=== PATIENT | male | born 1940 | race Caucasian/White ===

== ENCOUNTER 2017-07-14 09:56 | Day surgery (SDC) | payer MEDICARE, BC ==
[~2017-07-14 09:56] MED LIST: Lactated Ringers 1,000 ML IV SCH; Lidocaine 1%/Sod Bicarbonate in NS 8.4% 1 ML Syringe IDERM PRN; Sodium Chloride 0.9% 10 ML Syringe FLUSH PRN
[2017-07-14] MEDS ORDERED: Propofol 200 MG/20 ML SDV ONE (10:27)
[2017-07-14] MEDS ORDERED: fentaNYL 100 MCG/2 ML SDV ONE (10:27)
[2017-07-14] MEDS ORDERED: Lidocaine 1% 4 ML ONE (10:31)
--- NOTE | 2017-07-14 10:33 | PCM.PREANE ---
Preanesthetic Assessment - Procedure Proposed Procedure: Screening colonoscopy - Anesthesia/Transfusion/Family Hx Anesthesia History: Prior Anesthesia Without Reaction Family History of Anesthesia Reaction: No Transfusion History: No Prior Transfusion(s) Intubation History: Unknown Additional History: Pt is hypertensive due to him not taking his heart meds for 2 days now. Pt was concerned about "getting dizzy" if he continued to take his meds with the bowel prep. - Review of Systems General: No Symptoms Pulmonary: Cough (chronic) Cardiovascular: Other (cad, chf, hld, [place] with stents x2 in 2001, ASCVD) Gastrointestinal: No Symptoms Neurological: No Symptoms Other: Reports: None - Physical Assessment NPO Status Date: 07/13/17 NPO Status Time: 21:00 Pulse: 83 O2 Sat by Pulse Oximetry: 96 Respiratory Rate: 16 Blood Pressure: 146/110 Temperature: 36.8 C Height: 1.75 m Weight: 77 kg ASA Class: 3 Mental Status: Alert & Oriented x3 Airway Class: Mallampati = 2 Dentition: Reports: Normal Dentition Thyro-Mental Finger Breadths: 3 Mouth Opening Finger Breadths: 3 ROM/Head Extension: Full Lungs: Clear to Auscultation, Normal Respiratory Effort Cardiovascular: Regular Rate, Regular Rhythm - Allergies Allergies/Adverse Reactions: Allergies Allergy/AdvReac Type Severity Reaction Status Date / Time cephalexin Allergy Swelling Verified 07/13/17 13:03 - Blood Blood Available: No Product(s) Available: None - Anesthesia Plan Pre-Op Medication Ordered: None - Acknowledgements Anesthesia Type Planned: MAC Pt an Appropriate Candidate for the Planned Anesthesia: Yes Alternatives and Risks of Anesthesia Discussed w Pt/Guardian: Yes Pt/Guardian Understands and Agrees with Anesthesia Plan: Yes PreAnesthesia Questionnaire HEENT History: Reports: Hard of Hearing, Impaired Vision Other HEENT History: has glasses and hearing aids Cardiovascular History: Reports: CAD, Heart Failure, High Cholesterol, [place], Stents, Other (See Below) Other Cardiovascular History: ASCVD, hypotension Respiratory History: Reports: Other (See Below) Other Respiratory History: chronic cough Gastrointestinal History: Reports: Colon Polyp Genitourinary History: Reports: Other (See Below) Other Genitourinary History: orchitis, epidiymitis, hydrocele DIVIDEND CLERK History: Reports: None Musculoskeletal History: Reports: Other (See Below) Other Musculoskeletal History: plantar fasciitis, fibromatosis, left hip pain Neurological History: Reports: Other (See Below) Other Neuro History: dizziness Psychiatric History: Reports: None Endocrine/Metabolic History: Reports: None Hematologic History: Reports: None Immunologic History: Reports: None Oncologic (Cancer) History: Reports: None Dermatologic History: Reports: None - Past Surgical History Head Surgeries/Procedures: Reports: None HEENT Surgical History: Reports: None Respiratory Surgical History: Reports: None GI Surgical History: Reports: Colonoscopy, Hernia, Inguinal Female Surgical History: Reports: None Male Surgical History: Reports: None Endocrine Surgical History: Reports: None Neurological Surgical History: Reports: None Musculoskeletal Surgical History: Reports: None Oncologic Surgical History: Reports: None Dermatological Surgical History: Reports: None - SUBSTANCE USE Smoking Status *Q: Never Smoker Second Hand Smoke Exposure: No Days Per Week of Alcohol Use: 0 Recreational Drug Use History: No - HOME MEDS Home Medications: Home Meds Aspirin [Miguel Barrera Aspirin] 81 mg PO DAILY 07/13/17 [History] Carvedilol [Coreg] 6.25 mg PO DAILY 07/13/17 [History] Cholecalciferol (Vitamin D3) [Vitamin D3] 1,000 unit PO DAILY 07/13/17 [History] Enalapril Maleate [Vasotec] 5 mg PO DAILY 07/13/17 [History] Isosorbide Mononitrate [Imdur] 60 mg PO Q48H 07/13/17 [History] Multivitamin [Poly-Vitamin] 1 tab PO DAILY 07/13/17 [History] Nitroglycerin [Nitrostat] 0.4 mg PO Q5M PRN 07/13/17 [History] Ubidecarenone [Coq-10] 100 mg PO DAILY 07/13/17 [History] atorvaSTATin [Lipitor] 2.5 mg PO DAILY 07/13/17 [History] - CURRENT (IN HOUSE) MEDS Current Meds: Current Medications Lactated Ringer's (Ringers, Lactated) 1,000 mls @ 125 mls/hr IV ASDIRECTED KELLY Stop: 07/14/17 23:00 Lidocaine/Sodium Bicarbonate (Buffered Lidocaine 1% In Ns 8.4%) 0.25 ml IDERM ONETIME PRN PRN Reason: Prior to IV Start Stop: 07/14/17 18:00 Sodium Chloride (Saline Flush) 10 ml FLUSH ASDIRECTED PRN PRN Reason: Keep Vein Open Stop: 07/14/17 18:00
[2017-07-14] MEDS ORDERED: Simethicone Drops 40 MG/0.6 ML 30 ML Bottle ONE (11:40)
--- NOTE | 2017-07-14 11:52 | PCM.OPNOTE ---
- General Post-Op/Procedure Note Date of Surgery/Procedure: 07/14/17 Operative Procedure(s): colonoscopy to cecum Pre Op Diagnosis: screening colonoscopy Post-Op Diagnosis: Same Anesthesia Technique: MAC Primary Surgeon: Ramiro Sanabria EBL in mLs: 0 Complications: None Condition: Good
--- NOTE | 2017-07-14 11:56 | PCM48HPAN ---
Post Anesthesia Note - EVALUATION WITHIN 48HRS OF ANESTHETIC Vital Signs in Normal Range: Yes Patient Participated in Evaluation: Yes Respiratory Function Stable: Yes Airway Patent: Yes Cardiovascular Function Stable: Yes Hydration Status Stable: Yes Pain Control Satisfactory: Yes Nausea and Vomiting Control Satisfactory: Yes Mental Status Recovered: Yes Pulse Rate: 70 SaO2: 92 Resp Rate: 16 Temperature: 37.0 C Blood Pressure: 102/75
--- NOTE | 2017-07-14 13:20 | OR ---
DATE OF OPERATION: 07/14/2017 SURGEON: Ramiro Sanabria MD PREOPERATIVE DIAGNOSIS: Screening colonoscopy. POSTOPERATIVE DIAGNOSIS: Screening colonoscopy. OPERATION PERFORMED: Colonoscopy to cecum. FINDINGS: Moderately severe sigmoid diverticulosis. There are no angiodysplasia, neoplasia, large tumor masses, ulcerations, or notable hemorrhoids. ANESTHESIA: IV sedation. DESCRIPTION OF PROCEDURE: The patient was taken to the endoscopy room, placed in a supine position, connected to monitoring equipment, given IV sedation. He was then placed in the left lateral position. Perianal area was inspected, was normal rectal exam, showed good sphincter tone. A video Olympus colonoscope was then introduced into the rectum and threaded up without problem to the cecum, where the appendicular orifice and ileocecal valve was noted. Prep was excellent, [place] Cleansing score, grade A throughout the colon, and the scope was slowly withdrawn, showing the cecum, ascending colon, transverse colon, descending colon, sigmoid colon, and rectum. The patient tolerated the procedure, sent to recovery room in a stable condition. He will be followed up as needed in the clinic. ESTIMATED BLOOD LOSS: MMODAL /[id number]
== END 2017-07-14 12:40 | disposition home or self-care (01) ==
LOC: JD.SDS 09:56
PROVIDERS: ATTEND Surgery
DX: Z12.11 Encounter for screening for malignant neoplasm of colon (principal); K57.30 Diverticulosis of large intestine without perforation or abscess without bleeding; Z80.0 Family history of malignant neoplasm of digestive organs; I50.9 Heart failure, unspecified; E78.5 Hyperlipidemia, unspecified; I25.2 Old myocardial infarction; Z79.82 Long term (current) use of aspirin; Z79.899 Other long term (current) drug therapy; Z88.1 Allergy status to other antibiotic agents
CPT/HCPCS: A9270-GY; J2001; J2704; J3010; J7120

== ENCOUNTER 2018-04-30 13:24 | Emergency (ER) | payer MEDICARE, BC ==
--- NOTE | 2018-04-30 14:19 | EDM.PDOC ---
ED HPI GENERAL MEDICAL PROBLEM - General Chief Complaint: Neurological Problem Stated Complaint: DIZZINESS AND CHEST PAINS Time Seen by Provider: 04/30/18 13:39 Source of Information: Reports: Patient, Family (The patient's and daughter were present, but did not contribute to his history), RN Notes Reviewed History Limitations: Reports: No Limitations - History of Present Illness INITIAL COMMENTS - FREE TEXT/NARRATIVE: The patient states that he has been experiencing vertigo for the past 16 years. He may feel it at any time, but it is more frequent in the morning. He has been evaluated by ENT in the past, and his PCP has offered to put him on a different medicine for vertigo, but the patient has been reluctant to try it. He also reports that he has been sleeping poorly due to orthopnea since December 2017. He states that he will often get up, then sleep for a few hours in a recliner before returning to bed. He was told 16 years ago that he had CHF, and was initially on a diuretic, but the diuretic worsened his gout, and he was advised at the time that he should not be on a diuretic again, therefore the patient is not willing to be on a diuretic. The patient also reports that he has chest pain many mornings. Sometimes it last little time, sometimes a long time. The patient believes that his last cardiac stress test was around 10 years ago. The patient now presents to the ED, stating that he noticed that his feet looked swollen last night. He is tired from not sleeping well, and decided to come to the ED to get checked out. He states that he had chest pain this morning , but that it was no different than it usually is. Here in the ED, the patient denies vertigo, dyspnea, and chest pain. No recent illness. The patient's PCP is Dr. Asher. The patient does not have a [employer]. - Related Data Allergies Allergy/AdvReac Type Severity Reaction Status Date / Time cephalexin Allergy Swelling Verified 04/30/18 13:37 Home Meds: Home Meds Aspirin [[place] Aspirin] 81 mg PO DAILY 07/13/17 [History] Carvedilol [Coreg] 3.12 mg PO BID 07/13/17 [History] Cholecalciferol (Vitamin D3) [Vitamin D3] 1,000 unit PO DAILY 07/13/17 [History] Enalapril Maleate [Vasotec] 5 mg PO DAILY 07/13/17 [History] Isosorbide Mononitrate [Imdur] 30 mg PO DAILY 07/13/17 [History] Multivitamin [Poly-Vitamin] 1 tab PO DAILY 07/13/17 [History] Nitroglycerin [Nitrostat] 0.4 mg PO Q5M PRN 07/13/17 [History] Ubidecarenone [Coq-10] 100 mg PO DAILY 07/13/17 [History] atorvaSTATin [Lipitor] 5 mg PO DAILY 07/13/17 [History] Fluticasone Propionate [Flonase] 1 spray INH BID 04/30/18 [History] Past Medical History HEENT History: Reports: Hard of Hearing, Impaired Vision, Other (See Below) ( Chronic, recurrent vertigo) Other HEENT History: has glasses and hearing aids Cardiovascular History: Reports: CAD, Heart Failure, High Cholesterol, [place] (02/22) Gastrointestinal History: Reports: Colon Polyp Musculoskeletal History: Reports: Gout - Past Surgical History Cardiovascular Surgical History: Reports: Coronary Artery Stent (x 2001) GI Surgical History: Reports: Colonoscopy Social & Family History - Tobacco Use Smoking Status *Q: Never Smoker - Caffeine Use Caffeine Use: Reports: Coffee - Alcohol Use Alcohol Use History: No - Recreational Drug Use Recreational Drug Use: No - Living Situation & Occupation Living situation: Reports: , with Spouse Occupation: Retired ED ROS GENERAL - Review of Systems Review Of Systems: ROS reveals no pertinent complaints other than HPI. ED EXAM, GENERAL - Physical Exam Exam: See Below Exam Limited By: No Limitations General Appearance: Alert, WD/WN, No Apparent Distress Eye Exam: Bilateral Eye: EOMI, Normal Inspection Ears: Normal External Exam, Hearing Loss Nose: Normal Inspection Throat/Mouth: Normal Inspection, Normal Lips, Normal Voice, No Airway Compromise Head: Atraumatic, Normocephalic Neck: Normal Inspection, Full Range of Motion Respiratory/Chest: No Respiratory Distress, Lungs Clear, Normal Breath Sounds, No Accessory Muscle Use Cardiovascular: Normal Peripheral Pulses, Regular Rate, Rhythm, No Gallop, No JVD, No Murmur, No Rub Peripheral Pulses: 4+: Radial (L), Radial (R) GI/Abdominal: Normal Bowel Sounds, Soft, Non-Tender, No Organomegaly, No Distention, No Abnormal Bruit, No Mass (Male) Exam: Deferred Rectal (Males) Exam: Deferred Back Exam: Normal Inspection, Full Range of Motion, NT Extremities: Normal Inspection, Normal Range of Motion, Normal Capillary Refill , Other (2+ bilateral pedal edema, but no pretibial edema) Neurological: Alert, Oriented, Normal Cognition, No Motor/Sensory Deficits Psychiatric: Normal Affect Skin Exam: Warm, Dry, Intact, Normal Color, No Rash EKG INTERPRETATION EKG Date: 04/30/18 Time: 13:39 Rhythm: NSR Rate (Beats/Min): 96 [place]: LAD-Left [place] Deviation (2 LAFB) P-Wave: Enlarged (LAE) QRS: RBBB ST-T: Elevated (Lead III only) QT: Prolonged (QTc 524 ms) Comparison: NA - No Prior EKG Course - Vital Signs Last Recorded V/S: Last Vital Signs Temp 36.3 C 04/30/18 13:37 Pulse 101 H 04/30/18 13:37 Resp 12 04/30/18 13:37 BP 142/100 H 04/30/18 13:37 Pulse Ox 97 04/30/18 13:37 - Orders/Labs/Meds Orders: Active Orders 24 hr Category Date Time Status EKG Documentation Completion [RC] STAT Care 04/30/18 14:10 Active EKG Documentation Completion [RC] STAT Care 04/30/18 14:22 Active Chest 2V [CR] Stat Exams 04/30/18 14:09 Taken Labs: Laboratory Tests 04/30/18 04/30/18 04/30/18 Range/Units 13:40 13:40 13:40 WBC 5.90 (4.23-9.07) K/mm3 RBC 4.64 (4.63-6.08) M/mm3 Hgb 13.8 (13.7-17.5) gm/L Hct 42.9 (40.1-51.0) % MCV 92.5 H (79.0-92.2) fl MCH 29.7 (25.7-32.2) pg MCHC 32.2 (32.2-35.5) g/dl RDW Std Deviation 50.1 H (35.1-43.9) fL Plt Count 185 (163-337) K/mm3 MPV 11.9 (9.4-12.3) fl Neutrophils % (Manual) 64 H (40-60) % Band Neutrophils % 0 (0-10) % Lymphocytes % (Manual) 31 (20-40) % Atypical Lymphs % 0 % Monocytes % (Manual) 3 (2-10) % Eosinophils % (Manual) 2 (0.8-7.0) % Basophils % (Manual) 0 L (0.2-1.2) Platelet Estimate Adequate Plt Morphology Comment Normal RBC Morph Comment Normal Sodium 139 (136-145) mEq/L Potassium 4.2 (3.5-5.1) mEq/L Chloride 105 (98-107) mEq/L Carbon Dioxide 24 (21-32) mEq/L Anion Gap 14.2 (5-15) BUN 22 H (7-18) mg/dL Creatinine 1.3 (0.7-1.3) mg/dL Est Cr Clr Drug Dosing 49.91 mL/min Estimated GFR (MDRD) 54 (>60) mL/min BUN/Creatinine Ratio 16.9 (14-18) Glucose 156 H (83-115) mg/dL Calcium 9.6 (8.5-10.1) mg/dL Magnesium 2.2 (1.8-2.4) mg/dl Total Bilirubin 0.7 (0.2-1.0) mg/dL AST 34 (15-37) U/L ALT 58 (16-63) U/L Alkaline Phosphatase 76 (46-116) U/L Troponin I 0.143 H* (0.00-0.056) ng/mL NT-Pro-B Natriuret Pep 19745 H (0-450) pg/mL Total Protein 8.2 (6.4-8.2) g/dl Albumin 3.8 (3.4-5.0) g/dl Globulin 4.4 gm/dL Albumin/Globulin Ratio 0.9 L (1-2) - Re-Assessments/Exams Free Text/Narrative Re-Assessment/Exam: 04/30/18 14:22 Notified by the circular clerk that the patient is about to go for his chest x-ray, but he is experiencing right-sided chest pain. I have ordered a second ECG. 04/30/18 14:37 The patient's repeat ECG demonstrates a normal sinus rhythm at 88 BPM. There is one PVC. There is left atrial enlargement. No AV block. The ST segment is elevated in lead 3, but in no contiguous leads. There are no other ischemic changes. There is LAD, likely secondary to a left anterior fascicular block. No LVH. There is a right bundle branch block. The QTC is prolonged at 526 ms. There do not appear to be any significant changes from his earlier ECG. The patient's troponin has returned elevated at 0.143. We do not have any prior labs to compare. 04/30/18 14:42 2-view chest radiograph reviewed. There is cardiomegaly, and likely mild pulmonary vascular congestion, consistent with mild CHF decompensation. No pleural effusions. No focal infiltrate. No pneumothorax. Formal read per the Radiologist pending. 04/30/18 15:10 Test results discussed with the patient, his , and daughter. Clearly, the patient's orthopnea is due to congestive heart failure, and will not likely get better unless he is started on diuretic. Since the patient is not currently on a uric acid lowering medication, I am recommending that he be started on both a uric acid lowering medication, as well as a diuretic. Since there are choices in both of these classes of medications, and since his symptoms have been going on for several months, I feel it would be better if he followed up with his PCP , Dr. Asher, to make those choices. The patient said he would be able to, as early as tomorrow. The other issue is with the patient's elevated troponin. As above, I do not have a prior troponin to compare, but I think it is most likely that the patient has chronically elevated troponin due to congestive heart failure. In order to further evaluate, we would need to transfer the patient to [place], which I offered, but the patient declined. Again, since the patient will be following up with Dr. Asher, he may want to order an outpatient stress test for the patient. Departure - Departure Time of Disposition: 15:15 Disposition: Home, Self-Care 01 Condition: Fair Clinical Impression: Congestive heart failure (CHF), Elevated troponin - Discharge Information *PRESCRIPTION DRUG MONITORING PROGRAM REVIEWED*: Not Applicable *COPY OF PRESCRIPTION DRUG MONITORING REPORT IN PATIENT JACK: Not Applicable Referrals: Carroll Asher MD [Primary Care Provider] - Forms: ED Department Discharge Additional Instructions: You were seen in the emergency room for a 16 year history of vertigo, recurrent chest pain, an approximately four-month history of shortness of breath, particularly at night, when you are lying flat, and swollen feet noticed last night. Workup in the ER included blood work, a chest x-ray, and 2 ECGs. Your workup found to problems: 1. Your shortness of breath, particularly at night, is due to congestive heart failure. In order to properly treat this, you will need to be on a diuretic ( water pill), however, a diuretic may increase the chance of your having an attack of gout. We are recommending that you follow-up with your PCP, Dr. Asher, to discuss the option of starting on both a uric acid lowering medication, as well as a diuretic. 2. Your troponin (heart enzyme) was found to be mildly elevated. This is most likely due to your congestive heart failure although it is possible that it is due to other problems, such as inadequate blood flow to your heart. Further evaluation would be required in [place], which was offered, but declined. We recommend that you follow-up with Dr. Asher, to discuss getting an outpatient stress test. If any other problems, please do not hesitate to return to the ER. - My Orders Last 24 Hours: My Active Orders 04/30/18 14:09 Chest 2V [CR] Stat 04/30/18 14:10 EKG Documentation Completion [RC] STAT 04/30/18 14:22 EKG Documentation Completion [RC] STAT - Assessment/Plan Last 24 Hours: My Active Orders 04/30/18 14:09 Chest 2V [CR] Stat 04/30/18 14:10 EKG Documentation Completion [RC] STAT 04/30/18 14:22 EKG Documentation Completion [RC] STAT
--- NOTE | 2018-05-01 07:58 | CR ---
Chest: Two views of the chest were obtained. Comparison: No prior chest x-ray. Heart is enlarged. Pulmonary vessels are slightly congested. Very minimal Jose Angel B lines are noted within both lung bases possibly due to minimal interstitial edema. Bony structures appear within normal limits for the patient's age. Impression: 1. Findings suspicious for mild CHF and early interstitial edema. Diagnostic code #3
== END 2018-04-30 15:58 | disposition home or self-care (01) ==
LOC: JD.ED 13:24
DX: I50.9 Heart failure, unspecified (principal); R79.89 Other specified abnormal findings of blood chemistry; E78.00 Pure hypercholesterolemia, unspecified; I25.2 Old myocardial infarction; I25.10 Atherosclerotic heart disease of native coronary artery without angina pectoris; Z88.1 Allergy status to other antibiotic agents; Z79.899 Other long term (current) drug therapy; Z95.5 Presence of coronary angioplasty implant and graft; Z79.82 Long term (current) use of aspirin; Z88.8 Allergy status to other drugs, medicaments and biological substances
CPT/HCPCS: 36415; 71046; 71046-26; 80053; 83735; 83880; 84484; 85007; 85027; 93005; 93010; 99284; 99284-25

== ENCOUNTER 2018-05-01 21:20 | Inpatient (IN) | payer MEDICARE, BC ==
--- NOTE | 2018-05-01 22:19 | EDM.PDOC ---
ED HPI GENERAL MEDICAL PROBLEM - General Chief Complaint: Cardiovascular Problem Stated Complaint: SHORT OF BREATH Time Seen by Provider: 05/01/18 22:18 Source of Information: Reports: Patient History Limitations: Reports: No Limitations - History of Present Illness INITIAL COMMENTS - FREE TEXT/NARRATIVE: 77-year-old male presents to the ED for evaluation of dyspnea. He has a history of orthopnea getting worse over the last 3-4 days. He can usually lie down at bedtime but is up by 3:00 and has to go sit in the easy chair because of dyspnea. Short of breath on minimal exertion such as walking from the bedroom to the bathroom. He has one flight of stairs in his home and he can barely make it up the stairs because of dyspnea. Reports a myocardial infarction in 2001 and required 2 stents at that time. He states he's had no chest pain in the last week or 10 days It's unclear what his echo shows for ejection fraction. He was seen in the clinic earlier today by Dr. Asher and placed on Lasix 20 mg once daily which he took its 1800 hrs. tonight and noticed no improvement in diuresis. He denies cough sputum production fever or chills. Appetite is been quite poor the last 3 months. He thinks he's gained about 4-5 pounds of weight in the last week to 10 days and is appreciating edema of lower extremities involving his feet and ankles. Onset: Gradual Onset Date: 04/27/18 Duration: Day(s):, Getting Worse Location: Reports: Chest (Result breath with orthopnea and PND.) Quality: Reports: Other Severity: Severe (Shortness of breath even at rest but aggravated by minimal exertion) Improves with: Reports: Rest Worsens with: Reports: Other, Movement Context: Reports: Other (Spontaneous occurrence of increased dyspnea with orthopnea and PND). Denies: Activity (Walking for the bathroom to the bed will make him short of breath and he can barely make it up 6 stairs without having to stop because of dyspnea a big change from 10 days ago), Exercise, Lifting, Sick Contact, Trauma Associated Symptoms: Reports: Loss of Appetite, Malaise, Shortness of Breath, Other (4-5 pound weight gain in the last week). 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 but didn't notice any significant urination) - Related Data Allergies Allergy/AdvReac Type Severity Reaction Status Date / Time cephalexin Allergy Swelling Verified 04/30/18 13:37 Home Meds: Home Meds Aspirin [Angelina Aspirin] 81 mg PO DAILY 07/13/17 [History] Carvedilol [Coreg] 3.12 mg PO BID 07/13/17 [History] Enalapril Maleate [Vasotec] 5 mg PO BEDTIME 07/13/17 [History] Isosorbide Mononitrate [Imdur] 30 mg PO DAILY 07/13/17 [History] Nitroglycerin [Nitrostat] 0.4 mg PO Q5M PRN 07/13/17 [History] atorvaSTATin [Lipitor] 5 mg PO DAILY 07/13/17 [History] Furosemide 20 mg PO DAILY 05/01/18 [History] Past Medical History HEENT History: Reports: Hard of Hearing, Impaired Vision, Other (See Below) Other HEENT History: has glasses and hearing aids Cardiovascular History: Reports: CAD, Heart Failure, High Cholesterol, SD, Stents (In 2001 2 stents placed after SD in 2001) Other Cardiovascular History: ASCVD, hypotension Respiratory History: Reports: Other (See Below) Other Respiratory History: chronic cough Gastrointestinal History: Reports: Colon Polyp Genitourinary History: Reports: Other (See Below) Other Genitourinary History: orchitis, epidiymitis, hydrocele 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 Musculoskeletal History: Reports: Gout Other Musculoskeletal History: plantar fasciitis, fibromatosis, left hip pain Neurological History: Reports: Other (See Below) Other Neuro History: dizziness Psychiatric History: Reports: None Endocrine/Metabolic History: Reports: None Hematologic History: Reports: None Immunologic History: Reports: None Oncologic (Cancer) History: Reports: None Dermatologic History: Reports: None - Past Surgical History Head Surgeries/Procedures: Reports: None Cardiovascular Surgical History: Reports: Coronary Artery Stent Respiratory Surgical History: Reports: None GI Surgical History: Reports: Colonoscopy Male Surgical History: Reports: None Endocrine Surgical History: Reports: None Neurological Surgical History: Reports: None Oncologic Surgical History: Reports: None Dermatological Surgical History: Reports: None Social & Family History - Family History Family Medical History: Noncontributory - Tobacco Use Smoking Status *Q: Never Smoker Second Hand Smoke Exposure: No - Caffeine Use Caffeine Use: Reports: Coffee - Recreational Drug Use Recreational Drug Use: No - Living Situation & Occupation Living situation: Reports: , with Spouse Occupation: Retired ED ROS GENERAL - Review of Systems Review Of Systems: See Below Constitutional: Reports: Malaise, Weakness, Fatigue, Weight Gain (4-5 pounds over the last week), Other (Dyspnea). Denies: Fever, Chills, Diaphoresis HEENT: Reports: Glasses, Hearing Loss Respiratory: Reports: Shortness of Breath (Mild hearing impairment), Other. Denies: Wheezing, Pleuritic Chest Pain, Cough, Sputum, Hemoptysis Cardiovascular: Reports: Blood Pressure Problem, Dyspnea on Exertion ( appreciates increased swelling of his feet and ankles the last week), Edema ( believe is more vertiginous than anything), Lightheadedness (Occasional lightheadedness which I). Denies: Chest Pain (Orthopnea and PND the last week to 10 days), Claudication, Orthopnea, Palpitations ( much worse than normal over the last week. ) Endocrine: Reports: Fatigue GI/Abdominal: Reports: Decreased Appetite : Reports: Other (Arterial usually 2). Denies: Frequency, Incontinence Musculoskeletal: Reports: Back Pain, Joint Pain (Knees hips neck at times) Skin: Reports: No Symptoms Neurological: Reports: No Symptoms Psychiatric: Reports: No Symptoms Hematologic/Lymphatic: Reports: No Symptoms Immunologic: Reports: No Symptoms ED EXAM, GENERAL - Physical Exam Exam: See Below Exam Limited By: No Limitations General Appearance: Alert, WD/WN, No Apparent Distress, Other (A pleasant gentleman. Vital signs show temperature 36.7. Pulse of 84 monitor shows sinus rhythm. Respiratory distress 20 at rest with sats of 96%. BP is 133/92) Eye Exam: Bilateral Eye: Normal Inspection Throat/Mouth: Normal Inspection, Normal Lips, Normal Teeth, Normal Oropharynx Head: Atraumatic, Normocephalic Neck: Normal Inspection, Supple, Non-Tender, Full Range of Motion, Tender Lateral. No: Carotid Bruit (Some tenderness lateral aspect the neck bilaterally due to are stretched Mireya changes.), Lymphadenopathy (L), Lymphadenopathy (R) Respiratory/Chest: No Accessory Muscle Use, Respiratory Distress, Rales (INR is both bases a little worse on the left as compared to the right.). No: Lungs Clear, Normal Breath Sounds, Rhonchi, Wheezing, Stridor, Pleural Rub (Mild tachypnea at rest.) Cardiovascular: Regular Rate, Rhythm, No Gallop, No Murmur, No Rub, JVD (To 3 cm below the angle of his mandible at 45). No: Normal Peripheral Pulses, No Edema Peripheral Pulses: 1+: Posterior Tibial (L), Posterior Tibial (R), Dorsalis Pedis (L), Dorsalis Pedis (R) GI/Abdominal: Normal Bowel Sounds, Soft, Non-Tender, No Organomegaly Back Exam: Normal Inspection, Full Range of Motion. No: CVA Tenderness (L), CVA Tenderness (R) Extremities: Pedal Edema (1-2+ pitting edema lower extremities 2 in the lower third of the tib-fib bilaterally.), Other (Evidence of osteophytic changes both knees both hips) Neurological: Alert, Oriented, CN II-XII Intact, Normal Cognition Psychiatric: Normal Affect, Normal Mood Skin Exam: Warm, Dry, Intact, Normal Color, No Rash EKG INTERPRETATION EKG Date: 05/02/18 Time: 23:50 Rhythm: NSR Rate (Beats/Min): 70 [place]: LAD-Left [place] Deviation (-40) P-Wave: Enlarged (Enlarged in lead 2. Give some consideration to possible left atrial hypertrophy.) QRS: Other (There are Q waves in V1 and V2 and V3 and I can't use V4 to V6 for interpretation as both of these beats are secondary to PVCs. There is a Q-wave in lead II, III, and F aVF suggesting old inferior wall myocardial infarction as well.) ST-T: Elevated (Early elevated ST segment in lead 3.) QT: Prolonged (Water prolonged) EKG Interpretation Comments: Abnormal ECG. Course - Vital Signs Last Recorded V/S: Last Vital Signs Temp 36.7 C 05/01/18 21:36 Pulse 84 05/01/18 21:36 Resp 20 05/01/18 21:36 BP 133/92 H 05/01/18 21:36 Pulse Ox 98 05/01/18 21:36 - Orders/Labs/Meds Orders: Active Orders 24 hr Category Date Time Status EKG Documentation Completion [RC] STAT Care 05/01/18 22:28 Active Peripheral IV Care [RC] . DIRECTED Care 05/01/18 22:29 Active Chest 1V Frontal [CR] Stat Exams 05/01/18 22:28 Taken Sodium Chloride 0.9% [Saline Flush] Med 05/01/18 22:28 Active 10 ml FLUSH ASDIRECTED PRN Peripheral IV Insertion Adult [OM.PC] Stat Oth 05/01/18 22:29 Ordered Medication Orders Enoxaparin Sodium (Lovenox) 30 mg SUBCUT Q24H [facility] Last Admin: 05/02/18 01:23 Dose: 30 mg Sodium Chloride (Saline Flush) 10 ml FLUSH ASDIRECTED PRN PRN Reason: Keep Vein Open Last Admin: 05/01/18 23:01 Dose: 10 ml Labs: Laboratory Tests 05/01/18 05/01/18 05/01/18 Range/Units 22:54 22:54 22:54 WBC 6.09 (4.23-9.07) K/mm3 RBC 4.14 L (4.63-6.08) M/mm3 Hgb 12.3 L (13.7-17.5) gm/L Hct 38.3 L (40.1-51.0) % MCV 92.5 H (79.0-92.2) fl MCH 29.7 (25.7-32.2) pg MCHC 32.1 L (32.2-35.5) g/dl RDW Std Deviation 49.2 H (35.1-43.9) fL Plt Count 171 (163-337) K/mm3 MPV 11.2 (9.4-12.3) fl Neutrophils % (Manual) 65 H (40-60) % Band Neutrophils % 0 (0-10) % Lymphocytes % (Manual) 23 (20-40) % Atypical Lymphs % 0 % Monocytes % (Manual) 7 (2-10) % Eosinophils % (Manual) 5 (0.8-7.0) % Basophils % (Manual) 0 L (0.2-1.2) Platelet Estimate Adequate RBC Morph Comment Normal ESR (0-15) mm/hr PT 12.4 H (9.5-12.1) SECONDS INR 1.14 Sodium 138 (136-145) mEq/L Potassium 4.4 (3.5-5.1) mEq/L Chloride 105 (98-107) mEq/L Carbon Dioxide 23 (21-32) mEq/L Anion Gap 14.4 (5-15) BUN 26 H (7-18) mg/dL Creatinine 1.2 (0.7-1.3) mg/dL Est Cr Clr Drug Dosing 54.07 mL/min Estimated GFR (MDRD) 59 (>60) mL/min BUN/Creatinine Ratio 21.7 H (14-18) Glucose 113 (83-115) mg/dL Calcium 9.2 (8.5-10.1) mg/dL Magnesium 2.1 (1.8-2.4) mg/dl Total Bilirubin 0.6 (0.2-1.0) mg/dL AST 30 (15-37) U/L ALT 53 (16-63) U/L Alkaline Phosphatase 62 (46-116) U/L CK-MB (CK-2) (0-3.6) ng/ml Troponin I 0.121 H* (0.00-0.056) ng/mL C-Reactive Protein 0.5 (<1.0) mg/dL NT-Pro-B Natriuret Pep (0-450) pg/mL Total Protein 7.4 (6.4-8.2) g/dl Albumin 3.5 (3.4-5.0) g/dl Globulin 3.9 gm/dL Albumin/Globulin Ratio 0.9 L (1-2) 05/01/18 05/01/18 05/01/18 Range/Units 22:54 22:54 22:54 WBC (4.23-9.07) K/mm3 RBC (4.63-6.08) M/mm3 Hgb (13.7-17.5) gm/L Hct (40.1-51.0) % MCV (79.0-92.2) fl MCH (25.7-32.2) pg MCHC (32.2-35.5) g/dl RDW Std Deviation (35.1-43.9) fL Plt Count (163-337) K/mm3 MPV (9.4-12.3) fl Neutrophils % (Manual) (40-60) % Band Neutrophils % (0-10) % Lymphocytes % (Manual) (20-40) % Atypical Lymphs % % Monocytes % (Manual) (2-10) % Eosinophils % (Manual) (0.8-7.0) % Basophils % (Manual) (0.2-1.2) Platelet Estimate RBC Morph Comment ESR 11 (0-15) mm/hr PT (9.5-12.1) SECONDS INR Sodium (136-145) mEq/L Potassium (3.5-5.1) mEq/L Chloride (98-107) mEq/L Carbon Dioxide (21-32) mEq/L Anion Gap (5-15) BUN (7-18) mg/dL Creatinine (0.7-1.3) mg/dL Est Cr Clr Drug Dosing mL/min Estimated GFR (MDRD) (>60) mL/min BUN/Creatinine Ratio (14-18) Glucose (83-115) mg/dL Calcium (8.5-10.1) mg/dL Magnesium (1.8-2.4) mg/dl Total Bilirubin (0.2-1.0) mg/dL AST (15-37) U/L ALT (16-63) U/L Alkaline Phosphatase (46-116) U/L CK-MB (CK-2) 2.1 (0-3.6) ng/ml Troponin I (0.00-0.056) ng/mL C-Reactive Protein (<1.0) mg/dL NT-Pro-B Natriuret Pep 47316 H (0-450) pg/mL Total Protein (6.4-8.2) g/dl Albumin (3.4-5.0) g/dl Globulin gm/dL Albumin/Globulin Ratio (1-2) Meds: Medications Generic Name Dose Route Start Last Admin Trade Name Freq PRN Reason Stop Dose Admin Enoxaparin Sodium 30 mg 05/02/18 00:45 05/02/18 01:23 Lovenox SUBCUT 30 mg Q24H KELLY Administration Sodium Chloride 10 ml 05/01/18 22:28 05/01/18 23:01 Saline Flush FLUSH 10 ml ASDIRECTED PRN Administration Keep Vein Open Discontinued Medications Generic Name Dose Route Start Last Admin Trade Name Freq PRN Reason Stop Dose Admin Furosemide 40 mg 05/01/18 22:27 05/01/18 23:00 Lasix IVPUSH 05/01/18 22:28 40 mg NOW ONE Administration - Radiology Interpretation Free Text/Narrative:: 77-year-old male attends the ED due to gradually worsening dyspnea over the last week perhaps 10 days. The last 4 nights he's had to get up after sleeping for only 2 hours and sit in the easy chair i.e. paroxysmal nocturnal dyspnea. His then able to return to the bed about 0700 hrs. and perhaps sleep another couple hours. Patient has a history of congestive heart failure. Patient had a myocardial infarction in 2001 and required 2 stent placement. He is no longer on Plavix. It's unclear what his last echo showed for ejection fraction. He was seen in clinic today and started on Lasix 20 mg daily. He took his first one in 1800 hrs. but didn't really notice that he had any increase in voiding. He denies any chest pain in the last 10 days. Extremely short of breath on minimal exertion such as rockstar the bathroom to the bedroom or up a flight of 6 stairs he'll have to stop when he gets up stairs which he didn't have to do 10 days ago. Examination he has slight elevation of his JVD. He also has fine crackles at both lung bases worse on the left as compared to the right. Plan 1 view chest x-ray ECG routine labs to include BMP and cardiac markers. Reason for his cardiac decompensation is unclear. We'll give him Lasix 40 mg IV via saline lock. - Re-Assessments/Exams Free Text/Narrative Re-Assessment/Exam: 05/01/18 23:20 chest x-ray done portably reveals moderate cardiomegaly with very tortuous thoracic aorta and prominent aortic arch. There is slight diffuse vascular congestion particularly in the right lower quadrant possibly a small component of pulmonary fibrosis in this area as well. 05/02/18 00:08 White count is 6.09 with 65% neutrophils and no band cells reported. Hemoglobin is 12.3 with hematocrit of 38.3. MCV is 92.5. Reticulocyte count is 171,000. Sedimentation rate is 11. PT is 12.4 with an INR 1.14. Sodium 138 with a potassium of 4.4 chloride 105 with a bicarbonate 23. And a gap is 14.4 BUN is 26. Creatinine is 1.2.. GFR is 59. Glucose is 113. Calcium is 9.2. Magnesium is good at 2.1. Liver function is normal. Troponin I is elevated at 0.121. C-reactive protein is 0.5. BNP is 10,690. Total protein is 7.4 within albumin fraction of 3.5. Rest the findings with the patient and his daughter. Decision made for him to stay in the hospital for a day or 2 for IV Lasix to become effectual and removing a good portion of his retained fluid. It's unlikely that oral Lasix will do the trick by itself at this time. He is willing to stay in the house. His O2 sats remained 96% on room air. He already feels more comfortable or like he can get a better breath since having the Lasix IV. He has voided about 1000 mils of urine after the initial dose of Lasix 40. I spoke with Dr. Piña credit card control clerk hospitalist and bridge orders will be written. Patient will have a repeat Lasix dose 40 mg at 0600 hrs. will also have repeat lab work at that time with a serum troponin value. I suspect current troponin value is elevated due to elevated BNP almost impossible tell that he has not had a recent myocardial infarction causes cardiac decompensation. He will need an echocardiogram while in hospital. He will be given a dose of Lovenox 30 mg subcutaneous at this time. Departure - Departure Time of Disposition: 00:10 Disposition: Admitted As Inpatient 67 Reason for Transfer *Q: Other Condition: Fair Clinical Impression: Congestive heart failure Qualifiers: Heart failure type: diastolic Heart failure chronicity: acute on chronic Qualified Code(s): I50.33 - Acute on chronic diastolic (congestive) heart failure - My Orders Last 24 Hours: My Active Orders 05/01/18 22:28 EKG Documentation Completion [RC] STAT Chest 1V Frontal [CR] Stat Sodium Chloride 0.9% [Saline Flush] 10 ml FLUSH ASDIRECTED PRN 05/01/18 22:29 Peripheral IV Care [RC] . DIRECTED Peripheral IV Insertion Adult [OM.PC] Stat - Assessment/Plan Last 24 Hours: My Active Orders 05/01/18 22:28 EKG Documentation Completion [RC] STAT Chest 1V Frontal [CR] Stat Sodium Chloride 0.9% [Saline Flush] 10 ml FLUSH ASDIRECTED PRN 05/01/18 22:29 Peripheral IV Care [RC] . DIRECTED Peripheral IV Insertion Adult [OM.PC] Stat
[2018-05-01] MEDS ORDERED: Furosemide 40 MG/4 ML VIAL IVPUSH ONE (22:27)
[2018-05-01] MEDS ORDERED: Sodium Chloride 0.9% 10 ML Syringe FLUSH PRN (22:28)
[2018-05-02] MEDS: Enoxaparin 30 MG/0.3 ML Syringe SUBCUT SCH (01:23)
[2018-05-02] MEDS ORDERED: Acetaminophen 325 MG Tab PO PRN (02:21)
[2018-05-02] MEDS ORDERED: Furosemide 40 MG/4 ML VIAL IVPUSH SCH ×3 (06:00→18:00)
--- NOTE | 2018-05-02 07:17 | CR ---
Chest: Portable view of the chest was obtained. Comparison: Prior chest x-ray of 04/30/18. Heart is enlarged. Tortuous thoracic aorta is seen. Pulmonary vessels remain slightly increased. Bony structures are unremarkable. Impression: 1. Mild changes of CHF. Diagnostic code #3
[2018-05-02] MEDS ORDERED: Nitroglycerin 0.4 MG Tab.SL SL PRN (07:28)
[2018-05-02] MEDS ORDERED: Docusate Sodium 100 MG Cap PO PRN (07:32)
[2018-05-02] MEDS ORDERED: Ondansetron 4 MG/2 ML SDV IV PRN (07:32)
[2018-05-02] MEDS ORDERED: Bisacodyl 5 MG Tab PO PRN (07:32)
[2018-05-02] MEDS ORDERED: Polyethylene Glycol 3350 Powder 17 GM Packet PO PRN (07:32)
[2018-05-02] MEDS ORDERED: Metoprolol Tartrate 5 MG/5 ML SDV IVPUSH PRN (07:36)
[2018-05-02] MEDS ORDERED: hydrALAZINE 20 MG/ML SDV IVPUSH PRN (07:36)
--- NOTE | 2018-05-02 07:38 | PCM.HP ---
H&P History of Present Illness - General Date of Service: 05/02/18 Admit Problem/Dx: Admission Diagnosis/Problem Admission Diagnosis/Problem CHF, Congestive heart failure Source of Information: Patient, Family, Old Records, Provider, RN, RN Notes Reviewed History Limitations: Reports: No Limitations - History of Present Illness Initial Comments - Free Text/Narative: Anish Velez is a 77 yo male patient who presents to our ED on 05/01/18 with worsening dyspnea. He reports his been having worsening orthopnea over the past 3-4 days and because of this has been sleeping in the chair. He's noticed increased shortness of breath when walking to the bathroom or upstairs. His history of a myocardial infarction in 2001 that required 2 stents. Reports no recent chest pain. He was seen earlier at the clinic and placed on 20 mg oral Lasix by Dr. Asher which he took took at 1800 prior and the day and noticed no increased urine output or improve diuresis. Denies cough, sputum, fever, chills. Appetite has been poor for the last 3 months or so. Reports he thinks he gained about 4-5 pounds of weight in the last week to 10 days and noticed worsening edema in his feet and ankles. In the ED Was 36.7 Celsius. Pulse 84. Respirations 20. Blood pressure 133/ 92. Pulse ox 90%. 12-lead EKG is obtained and interpreted by the ED provider as showing left axis deviation with an enlarged P wave in lead 2. Consider possible left atrial hypertrophy. Q waves are present in V1, V2, and V3. V5 and V6 are skewed by prior PVCs. There is Q waves noted in inferior leads suggesting old inferior wall myocardial infarction. ST segment is elevated in lead 3 and QT is prolonged. Labs are obtained: WBC is 6.09. Hemoglobin 12.3. Hematocrit 30.3. He is macrocytic. Platelets are good at 171,000. Neutrophils are elevated at 65%. There is no bandemia. PT is 12.4. INR is 1.14. Sodium is 138. Potassium 4.4. Chloride 105. Carbon oxide 23. Anion gap 14.4. BUN is 26. Creatinine 1.2. EGFR is 59. Glucose 113. Calcium 9.2. Magnesium 2.1. Bilirubin is 0.6. AST 30, ALT 53, alkaline phosphatase 62. Troponin is elevated at 0.121. CRP is 0.5. Protein 7.4. Albumin 3.5. ESR is 11. CK-MB is 2.1. ProBNP is 10,690. ED provider notes JVD and fine crackles in both lung bases worse on the left. A 40 mg IV push Lasix. Chest x-rays obtained and interpreted by Dr. Contreras is having enlarged heart and slightly increased pulmonary vessels. This represents mild changes of CHF. Patient reported improved breathing after having the IV Lasix. He also was noted to have about a liter of urine output. Suspect elevated troponins due to elevated BNP. He carries a history of: Hard of hearing, CAD, heart failure, HLD, MS with 2 stents placed in 2001, ASCVD, hypotension, chronic cough, cold polyps, gout, chronic dizziness. He was never a smoker. He says really admitted to the medical floor on telemetry. He is a full code. His PCP is Dr. Asher. - Related Data Allergies/Adverse Reactions: Allergies Allergy/AdvReac Type Severity Reaction Status Date / Time cephalexin Allergy Swelling Verified 04/30/18 13:37 Home Medications: Home Meds Aspirin [Jones Aspirin] 81 mg PO DAILY 07/13/17 [History] Carvedilol [Coreg] 3.12 mg PO BID 07/13/17 [History] Enalapril Maleate [Vasotec] 5 mg PO BEDTIME 07/13/17 [History] Isosorbide Mononitrate [Imdur] 30 mg PO DAILY 07/13/17 [History] Nitroglycerin [Nitrostat] 0.4 mg PO Q5M PRN 07/13/17 [History] atorvaSTATin [Lipitor] 5 mg PO DAILY 07/13/17 [History] Furosemide 20 mg PO DAILY 05/01/18 [History] Past Medical History HEENT History: Reports: Hard of Hearing, Impaired Vision, Other (See Below) Other HEENT History: has glasses and hearing aids Cardiovascular History: Reports: CAD, Heart Failure, High Cholesterol, MS, Stents Other Cardiovascular History: ASCVD, hypotension Respiratory History: Reports: Other (See Below) Other Respiratory History: chronic cough Gastrointestinal History: Reports: Colon Polyp Genitourinary History: Reports: Other (See Below) Other Genitourinary History: orchitis, epidiymitis, hydrocele HOME HEALTH RN History: Reports: None Musculoskeletal History: Reports: Gout Other Musculoskeletal History: plantar fasciitis, fibromatosis, left hip pain Neurological History: Reports: Other (See Below) Other Neuro History: dizziness Psychiatric History: Reports: None Endocrine/Metabolic History: Reports: None Hematologic History: Reports: None Immunologic History: Reports: None Oncologic (Cancer) History: Reports: None Dermatologic History: Reports: None - Infectious Disease History Infectious Disease History: Reports: Chicken Pox - Past Surgical History Head Surgeries/Procedures: Reports: None Cardiovascular Surgical History: Reports: Coronary Artery Stent Respiratory Surgical History: Reports: None GI Surgical History: Reports: Colonoscopy Male Surgical History: Reports: None Endocrine Surgical History: Reports: None Neurological Surgical History: Reports: None Oncologic Surgical History: Reports: None Dermatological Surgical History: Reports: None Social & Family History - Family History Family Medical History: Noncontributory - Tobacco Use Smoking Status *Q: Never Smoker Second Hand Smoke Exposure: No - Caffeine Use Caffeine Use: Reports: Coffee - Recreational Drug Use Recreational Drug Use: No - Living Situation & Occupation Living situation: Reports: , with Spouse Occupation: Retired H&P Review of Systems - Review of Systems: Review Of Systems: See Below General: Reports: Decreased Appetite, Weight Gain (4-5lbs). Denies: Fever, Chills, Malaise, Weakness, Fatigue HEENT: Denies: Hearing Changes, Rhinitis, Sore Throat Pulmonary: Reports: Shortness of Breath, Cough. Denies: Wheezing, Pleuritic Chest Pain, Sputum Cardiovascular: Reports: Palpitations, Dyspnea on Exertion, Orthopnea, Edema. Denies: Chest Pain, Lightheadedness Gastrointestinal: Reports: No Symptoms. Denies: Abdominal Pain, Constipation, Diarrhea, Nausea, Vomiting Genitourinary: Reports: Frequency (2/2 lasix admin ). Denies: Pain Musculoskeletal: Reports: No Symptoms Skin: Reports: No Symptoms Psychiatric: Reports: No Symptoms. Denies: Confusion Neurological: Reports: No Symptoms. Denies: Headache, Numbness, Pre-Existing Deficit, Difficulty Walking, Change in Speech, Gait Disturbance Exam - Exam Exam: See Below - Vital Signs Vital Signs: Last Vital Signs Temp 97.3 F 05/02/18 01:44 Pulse 95 05/02/18 01:44 Resp 20 05/02/18 01:44 BP 137/97 H 05/02/18 01:44 Pulse Ox 96 05/02/18 01:44 Weight: 173 lb 8 oz - Exam Quality Assessment: DVT Prophylaxis General: Alert, Oriented, Cooperative. No: Mild Distress HEENT: Conjunctiva Clear, EACs Clear, EOMI, Hearing Intact, Mucosa Moist & Lead , Normal Nasal Septum, Posterior Pharynx Clear, PERRLA Neck: Supple, Trachea Midline, JVD Lungs: Clear to Auscultation, Normal Respiratory Effort. No: Crackles, Rhonchi , Wheezing Cardiovascular: Regular Rate, Irregular Rhythm (PVCs ) GI/Abdominal Exam: Normal Bowel Sounds, Soft, Non-Tender, No Organomegaly, No Distention (Male) Exam: Deferred Rectal (Males) Exam: Deferred Back Exam: Normal Inspection, Full Range of Motion Extremities: Normal Inspection, Normal Range of Motion, Non-Tender, No Pedal Edema, Normal Capillary Refill Peripheral Pulses: 2+: Radial (L), Radial (R), Dorsalis Pedis (L), Dorsalis Pedis (R) Skin: Warm, Dry, Intact Neurological: Cranial Nerves Intact (Grossly ) Neuro Extensive - Mental Status: Alert, Oriented x3, Normal Mood/Affect - Patient Data Lab Results Last 24 hrs: Laboratory Results - last 24 hr 05/01/18 05/01/18 05/01/18 Range/Units 22:54 22:54 22:54 WBC 6.09 (4.23-9.07) K/mm3 RBC 4.14 L (4.63-6.08) M/mm3 Hgb 12.3 L (13.7-17.5) gm/L Hct 38.3 L (40.1-51.0) % MCV 92.5 H (79.0-92.2) fl MCH 29.7 (25.7-32.2) pg MCHC 32.1 L (32.2-35.5) g/dl RDW Std Deviation 49.2 H (35.1-43.9) fL Plt Count 171 (163-337) K/mm3 MPV 11.2 (9.4-12.3) fl Neut % (Auto) (34.0-67.9) % Lymph % (Auto) (21.8-53.1) % Summers % (Auto) (5.3-12.2) % Eos % (Auto) (0.8-7.0) Baso % (Auto) (0.1-1.2) % Neut # (Auto) (1.78-5.38) K/mm3 Lymph # (Auto) (1.32-3.57) K/mm3 Summers # (Auto) (0.30-0.82) K/mm3 Eos # (Auto) (0.04-0.54) K/mm3 Baso # (Auto) (0.01-0.08) K/mm3 Neutrophils % (Manual) 65 H (40-60) % Band Neutrophils % 0 (0-10) % Lymphocytes % (Manual) 23 (20-40) % Atypical Lymphs % 0 % Monocytes % (Manual) 7 (2-10) % Eosinophils % (Manual) 5 (0.8-7.0) % Basophils % (Manual) 0 L (0.2-1.2) Platelet Estimate Adequate RBC Morph Comment Normal ESR (0-15) mm/hr PT 12.4 H (9.5-12.1) SECONDS INR 1.14 Sodium 138 (136-145) mEq/L Potassium 4.4 (3.5-5.1) mEq/L Chloride 105 (98-107) mEq/L Carbon Dioxide 23 (21-32) mEq/L Anion Gap 14.4 (5-15) BUN 26 H (7-18) mg/dL Creatinine 1.2 (0.7-1.3) mg/dL Est Cr Clr Drug Dosing 54.07 mL/min Estimated GFR (MDRD) 59 (>60) mL/min BUN/Creatinine Ratio 21.7 H (14-18) Glucose 113 (83-115) mg/dL Calcium 9.2 (8.5-10.1) mg/dL Magnesium 2.1 (1.8-2.4) mg/dl Total Bilirubin 0.6 (0.2-1.0) mg/dL AST 30 (15-37) U/L ALT 53 (16-63) U/L Alkaline Phosphatase 62 (46-116) U/L CK-MB (CK-2) (0-3.6) ng/ml Troponin I 0.121 H* (0.00-0.056) ng/mL C-Reactive Protein 0.5 (<1.0) mg/dL NT-Pro-B Natriuret Pep (0-450) pg/mL Total Protein 7.4 (6.4-8.2) g/dl Albumin 3.5 (3.4-5.0) g/dl Globulin 3.9 gm/dL Albumin/Globulin Ratio 0.9 L (1-2) Urine Color (Yellow) Urine Appearance (Clear) Urine pH (5.0-8.0) Ur Specific [place] (1.005-1.030) Urine Protein (Negative) Urine Glucose (UA) (Negative) Urine Ketones (Negative) Urine Occult Blood (Negative) Urine Nitrite (Negative) Urine Bilirubin (Negative) Urine Urobilinogen (0.2-1.0) Ur Leukocyte Esterase (Negative) Urine RBC (0-5) /hpf Urine WBC (0-5) /hpf Ur Epithelial Cells (0-5) /hpf Urine Bacteria (FEW) /hpf Urine Mucus (FEW) /hpf 05/01/18 05/01/18 05/01/18 Range/Units 22:54 22:54 22:54 WBC (4.23-9.07) K/mm3 RBC (4.63-6.08) M/mm3 Hgb (13.7-17.5) gm/L Hct (40.1-51.0) % MCV (79.0-92.2) fl MCH (25.7-32.2) pg MCHC (32.2-35.5) g/dl RDW Std Deviation (35.1-43.9) fL Plt Count (163-337) K/mm3 MPV (9.4-12.3) fl Neut % (Auto) (34.0-67.9) % Lymph % (Auto) (21.8-53.1) % Summers % (Auto) (5.3-12.2) % Eos % (Auto) (0.8-7.0) Baso % (Auto) (0.1-1.2) % Neut # (Auto) (1.78-5.38) K/mm3 Lymph # (Auto) (1.32-3.57) K/mm3 Summers # (Auto) (0.30-0.82) K/mm3 Eos # (Auto) (0.04-0.54) K/mm3 Baso # (Auto) (0.01-0.08) K/mm3 Neutrophils % (Manual) (40-60) % Band Neutrophils % (0-10) % Lymphocytes % (Manual) (20-40) % Atypical Lymphs % % Monocytes % (Manual) (2-10) % Eosinophils % (Manual) (0.8-7.0) % Basophils % (Manual) (0.2-1.2) Platelet Estimate RBC Morph Comment ESR 11 (0-15) mm/hr PT (9.5-12.1) SECONDS INR Sodium (136-145) mEq/L Potassium (3.5-5.1) mEq/L Chloride (98-107) mEq/L Carbon Dioxide (21-32) mEq/L Anion Gap (5-15) BUN (7-18) mg/dL Creatinine (0.7-1.3) mg/dL Est Cr Clr Drug Dosing mL/min Estimated GFR (MDRD) (>60) mL/min BUN/Creatinine Ratio (14-18) Glucose (83-115) mg/dL Calcium (8.5-10.1) mg/dL Magnesium (1.8-2.4) mg/dl Total Bilirubin (0.2-1.0) mg/dL AST (15-37) U/L ALT (16-63) U/L Alkaline Phosphatase (46-116) U/L CK-MB (CK-2) 2.1 (0-3.6) ng/ml Troponin I (0.00-0.056) ng/mL C-Reactive Protein (<1.0) mg/dL NT-Pro-B Natriuret Pep 06892 H (0-450) pg/mL Total Protein (6.4-8.2) g/dl Albumin (3.4-5.0) g/dl Globulin gm/dL Albumin/Globulin Ratio (1-2) Urine Color (Yellow) Urine Appearance (Clear) Urine pH (5.0-8.0) Ur Specific [place] (1.005-1.030) Urine Protein (Negative) Urine Glucose (UA) (Negative) Urine Ketones (Negative) Urine Occult Blood (Negative) Urine Nitrite (Negative) Urine Bilirubin (Negative) Urine Urobilinogen (0.2-1.0) Ur Leukocyte Esterase (Negative) Urine RBC (0-5) /hpf Urine WBC (0-5) /hpf Ur Epithelial Cells (0-5) /hpf Urine Bacteria (FEW) /hpf Urine Mucus (FEW) /hpf 05/02/18 05/02/18 05/02/18 Range/Units 02:05 05:47 05:47 WBC 5.41 (4.23-9.07) K/mm3 RBC 4.38 L (4.63-6.08) M/mm3 Hgb 12.9 L (13.7-17.5) gm/L Hct 40.3 (40.1-51.0) % MCV 92.0 (79.0-92.2) fl MCH 29.5 (25.7-32.2) pg MCHC 32.0 L (32.2-35.5) g/dl RDW Std Deviation 48.5 H (35.1-43.9) fL Plt Count 181 (163-337) K/mm3 MPV 12.0 (9.4-12.3) fl Neut % (Auto) 58.0 (34.0-67.9) % Lymph % (Auto) 28.5 (21.8-53.1) % Summers % (Auto) 9.2 (5.3-12.2) % Eos % (Auto) 3.7 (0.8-7.0) Baso % (Auto) 0.4 (0.1-1.2) % Neut # (Auto) 3.14 (1.78-5.38) K/mm3 Lymph # (Auto) 1.54 (1.32-3.57) K/mm3 Summers # (Auto) 0.50 (0.30-0.82) K/mm3 Eos # (Auto) 0.20 (0.04-0.54) K/mm3 Baso # (Auto) 0.02 (0.01-0.08) K/mm3 Neutrophils % (Manual) (40-60) % Band Neutrophils % (0-10) % Lymphocytes % (Manual) (20-40) % Atypical Lymphs % % Monocytes % (Manual) (2-10) % Eosinophils % (Manual) (0.8-7.0) % Basophils % (Manual) (0.2-1.2) Platelet Estimate RBC Morph Comment ESR (0-15) mm/hr PT (9.5-12.1) SECONDS INR Sodium (136-145) mEq/L Potassium (3.5-5.1) mEq/L Chloride (98-107) mEq/L Carbon Dioxide (21-32) mEq/L Anion Gap (5-15) BUN (7-18) mg/dL Creatinine (0.7-1.3) mg/dL Est Cr Clr Drug Dosing mL/min Estimated GFR (MDRD) (>60) mL/min BUN/Creatinine Ratio (14-18) Glucose (83-115) mg/dL Calcium (8.5-10.1) mg/dL Magnesium (1.8-2.4) mg/dl Total Bilirubin (0.2-1.0) mg/dL AST (15-37) U/L ALT (16-63) U/L Alkaline Phosphatase (46-116) U/L CK-MB (CK-2) (0-3.6) ng/ml Troponin I 0.106 H* (0.00-0.056) ng/mL C-Reactive Protein (<1.0) mg/dL NT-Pro-B Natriuret Pep (0-450) pg/mL Total Protein (6.4-8.2) g/dl Albumin (3.4-5.0) g/dl Globulin gm/dL Albumin/Globulin Ratio (1-2) Urine Color Light yellow (Yellow) Urine Appearance Clear (Clear) Urine pH 6.5 (5.0-8.0) Ur Specific [place] 1.015 (1.005-1.030) Urine Protein Negative (Negative) Urine Glucose (UA) Negative (Negative) Urine Ketones Negative (Negative) Urine Occult Blood Negative (Negative) Urine Nitrite Negative (Negative) Urine Bilirubin Negative (Negative) Urine Urobilinogen 0.2 (0.2-1.0) Ur Leukocyte Esterase Negative (Negative) Urine RBC Not seen (0-5) /hpf Urine WBC Not seen (0-5) /hpf Ur Epithelial Cells Not seen (0-5) /hpf Urine Bacteria Not seen (FEW) /hpf Urine Mucus Not seen (FEW) /hpf 05/02/18 Range/Units 05:47 WBC (4.23-9.07) K/mm3 RBC (4.63-6.08) M/mm3 Hgb (13.7-17.5) gm/L Hct (40.1-51.0) % MCV (79.0-92.2) fl MCH (25.7-32.2) pg MCHC (32.2-35.5) g/dl RDW Std Deviation (35.1-43.9) fL Plt Count (163-337) K/mm3 MPV (9.4-12.3) fl Neut % (Auto) (34.0-67.9) % Lymph % (Auto) (21.8-53.1) % Summers % (Auto) (5.3-12.2) % Eos % (Auto) (0.8-7.0) Baso % (Auto) (0.1-1.2) % Neut # (Auto) (1.78-5.38) K/mm3 Lymph # (Auto) (1.32-3.57) K/mm3 Summers # (Auto) (0.30-0.82) K/mm3 Eos # (Auto) (0.04-0.54) K/mm3 Baso # (Auto) (0.01-0.08) K/mm3 Neutrophils % (Manual) (40-60) % Band Neutrophils % (0-10) % Lymphocytes % (Manual) (20-40) % Atypical Lymphs % % Monocytes % (Manual) (2-10) % Eosinophils % (Manual) (0.8-7.0) % Basophils % (Manual) (0.2-1.2) Platelet Estimate RBC Morph Comment ESR (0-15) mm/hr PT (9.5-12.1) SECONDS INR Sodium 138 (136-145) mEq/L Potassium 3.7 (3.5-5.1) mEq/L Chloride 104 (98-107) mEq/L Carbon Dioxide 24 (21-32) mEq/L Anion Gap 13.7 (5-15) BUN 25 H (7-18) mg/dL Creatinine 1.2 (0.7-1.3) mg/dL Est Cr Clr Drug Dosing 54.07 mL/min Estimated GFR (MDRD) 59 (>60) mL/min BUN/Creatinine Ratio 20.8 H (14-18) Glucose 107 (83-115) mg/dL Calcium 9.7 (8.5-10.1) mg/dL Magnesium 2.0 (1.8-2.4) mg/dl Total Bilirubin 0.9 (0.2-1.0) mg/dL AST 28 (15-37) U/L ALT 52 (16-63) U/L Alkaline Phosphatase 60 (46-116) U/L CK-MB (CK-2) (0-3.6) ng/ml Troponin I (0.00-0.056) ng/mL C-Reactive Protein (<1.0) mg/dL NT-Pro-B Natriuret Pep (0-450) pg/mL Total Protein 7.7 (6.4-8.2) g/dl Albumin 3.7 (3.4-5.0) g/dl Globulin 4.0 gm/dL Albumin/Globulin Ratio 0.9 L (1-2) Urine Color (Yellow) Urine Appearance (Clear) Urine pH (5.0-8.0) Ur Specific [place] (1.005-1.030) Urine Protein (Negative) Urine Glucose (UA) (Negative) Urine Ketones (Negative) Urine Occult Blood (Negative) Urine Nitrite (Negative) Urine Bilirubin (Negative) Urine Urobilinogen (0.2-1.0) Ur Leukocyte Esterase (Negative) Urine RBC (0-5) /hpf Urine WBC (0-5) /hpf Ur Epithelial Cells (0-5) /hpf Urine Bacteria (FEW) /hpf Urine Mucus (FEW) /hpf Result Diagrams: 05/02/18 05:47 05/02/18 05:47 - Problem List (1) Congestive heart failure (CHF) SNOMED Code(s): 82714321 ICD Code: I50.9 - HEART FAILURE, UNSPECIFIED Status: Acute Priority: High Current Visit: Yes Qualifiers: Heart failure type: diastolic Heart failure chronicity: acute on chronic Qualified Code(s): I50.33 - Acute on chronic diastolic (congestive) heart failure (2) Elevated troponin SNOMED Code(s): 707467077, 340713647, 370420467 ICD Code: R74.8 - ABNORMAL LEVELS OF OTHER SERUM ENZYMES Status: Acute Priority: High Current Visit: Yes Problem List Initiated/Reviewed/Updated: Yes Orders Last 24hrs: Active Orders 24 hr Category Date Time Status Admission Status [Patient Status] [ADT] Routine ADT 05/02/18 00:31 Active Cardiac Monitoring [RC] CONTINUOUS Care 05/02/18 07:33 Active Height and Weight [RC] DAILY Care 05/02/18 07:32 Active Intake and Output [RC] QSHIFT Care 05/02/18 07:33 Active Oxygen Therapy [RC] PRN Care 05/02/18 07:32 Active Pulse Oximetry [RC] PRN Care 05/02/18 07:33 Active Up With Assistance [RC] BID Care 05/02/18 02:17 Active VTE/DVT Education [RC] PER UNIT ROUTINE Care 05/02/18 07:32 Active Vital Signs [RC] Q6H Care 05/02/18 07:32 Active Consult to Case Management/Car Dumper Operator Helper [CONS] Cons 05/02/18 07:32 Active Routine Consult to Engineering Manager Electronics [CONS] Routine Cons 05/02/18 07:32 Active Consult to Spiritual Care [CONS] Routine Cons 05/02/18 07:32 Active OT Evaluation and Treatment [CONS] Routine Cons 05/02/18 07:32 Active PT Evaluation and Treatment [CONS] Routine Cons 05/02/18 07:32 Active Heart Healthy Diet [DIET] Diet 05/02/18 Breakfast Active Chest 2V [CR] Routine Exams 05/03/18 08:00 Ordered Echo 2D wo Cont [US] Routine Exams 05/02/18 07:31 Ordered BASIC METABOLIC PANEL,BMP [CHEM] AM Lab 05/03/18 05:11 Ordered BASIC METABOLIC PANEL,BMP [CHEM] AM Lab 05/04/18 05:11 Ordered BASIC METABOLIC PANEL,BMP [CHEM] AM Lab 05/05/18 05:11 Ordered BASIC METABOLIC PANEL,BMP [CHEM] AM Lab 05/06/18 05:11 Ordered CBC WITH AUTO DIFF [HEME] AM Lab 05/03/18 05:11 Ordered CBC WITH AUTO DIFF [HEME] AM Lab 05/04/18 05:11 Ordered CBC WITH AUTO DIFF [HEME] AM Lab 05/05/18 05:11 Ordered CBC WITH AUTO DIFF [HEME] AM Lab 05/06/18 05:11 Ordered CKMB [CHEM] Routine Lab 05/02/18 12:00 Ordered LIPID PANEL [CHEM] Routine Lab 05/02/18 07:36 Ordered MAGNESIUM [CHEM] AM Lab 05/03/18 05:11 Ordered MAGNESIUM [CHEM] AM Lab 05/04/18 05:11 Ordered MAGNESIUM [CHEM] AM Lab 05/05/18 05:11 Ordered MAGNESIUM [CHEM] AM Lab 05/06/18 05:11 Ordered PRO B-TYPE NATRIUR PEPT,BNPPRO [CHEM] DAILY Lab 05/03/18 05:11 Ordered PRO B-TYPE NATRIUR PEPT,BNPPRO [CHEM] DAILY Lab 05/04/18 05:11 Ordered PRO B-TYPE NATRIUR PEPT,BNPPRO [CHEM] DAILY Lab 05/05/18 05:11 Ordered PRO B-TYPE NATRIUR PEPT,BNPPRO [CHEM] DAILY Lab 05/06/18 05:11 Ordered PRO B-TYPE NATRIUR PEPT,BNPPRO [CHEM] Routine Lab 05/02/18 07:26 Ordered TROPONIN I [CHEM] Routine Lab 05/02/18 12:00 Ordered Acetaminophen [Tylenol] Med 05/02/18 02:21 Active 650 mg PO Q4H PRN Aspirin Med 05/02/18 09:00 Active 81 mg PO DAILY Bisacodyl [Dulcolax] Med 05/02/18 07:32 Ordered 5 mg PO DAILY PRN Carvedilol [Coreg] Med 05/02/18 09:00 Active 3.125 mg PO BID Docusate Sodium [Colace] Med 05/02/18 07:32 Ordered 100 mg PO BID PRN Docusate Sodium/Sennosides [Senna Plus] Med 05/02/18 07:32 Ordered 1 tab PO BID PRN Enoxaparin [Lovenox] Med 05/02/18 00:45 Active 30 mg SUBCUT Q24H Furosemide [Lasix] Med 05/02/18 18:00 Active 40 mg IVPUSH Q12H Isosorbide Mononitrate [Imdur] Med 05/02/18 09:00 Active 30 mg PO DAILY Metoprolol Tartrate [Lopressor] Med 05/02/18 07:36 Ordered 5 mg IVPUSH Q4H PRN Nitroglycerin [Nitrostat] Med 05/02/18 07:28 Active 0.4 mg SL Q5M PRN Ondansetron [Zofran] Med 05/02/18 07:32 Ordered 4 mg IV Q6H PRN Pharmacy to Dose - Magnesium R [Pharmacy to Dose - Med 05/02/18 07:45 Ordered Magnesium Replacement] 1 dose .XX ASDIRECTED Pharmacy to Dose - Potassium R [Pharmacy to Dose - Med 05/02/18 07:45 Ordered Potassium Replacement] 1 dose .XX ASDIRECTED Polyethylene Glycol 3350 [MiraLAX] Med 05/02/18 07:32 Ordered 17 gm PO DAILY PRN Sodium Chloride 0.9% [Saline Flush] Med 05/01/18 22:28 Active 10 ml FLUSH ASDIRECTED PRN atorvaSTATin Med 05/02/18 09:00 Ordered 5 mg PO DAILY hydrALAZINE [Apresoline] Med 05/02/18 07:36 Ordered 20 mg IVPUSH Q4H PRN Peripheral IV Insertion Adult [OM.PC] Stat Oth 05/01/18 22:29 Ordered Resuscitation Status Routine Resus Stat 05/02/18 02:23 Ordered Medication Orders Acetaminophen (Tylenol) 650 mg PO Q4H PRN PRN Reason: Pain (mild 1-3) Aspirin (Aspirin) 81 mg PO DAILY KELLY Bisacodyl (Dulcolax) 5 mg PO DAILY PRN PRN Reason: Constipation Carvedilol (Coreg) 3.125 mg PO BID KELLY Docusate Sodium (Colace) 100 mg PO BID PRN PRN Reason: Constipation Enoxaparin Sodium (Lovenox) 30 mg SUBCUT Q24H KELLY Last Admin: 05/02/18 01:23 Dose: 30 mg Furosemide (Lasix) 40 mg IVPUSH Q12H KELLY Hydralazine HCl (Apresoline) 20 mg IVPUSH Q4H PRN PRN Reason: Hypertension Isosorbide Mononitrate (Imdur) 30 mg PO DAILY [facility] Magnesium Sulfate (Pharmacy To Dose - Magnesium Replacement) 1 dose .XX ASDIRECTED [facility] Metoprolol Tartrate (Lopressor) 5 mg IVPUSH Q4H PRN PRN Reason: Tachycardia Nitroglycerin (Nitrostat) 0.4 mg SL Q5M PRN PRN Reason: Chest Pain Non-Formulary Medication (Atorvastatin) 5 mg PO DAILY [facility] Ondansetron HCl (Zofran) 4 mg IV Q6H PRN PRN Reason: Nausea/Vomiting Polyethylene Glycol (Miralax) 17 gm PO DAILY PRN PRN Reason: Constipation Potassium Chloride (Pharmacy To Dose - Potassium Replacement) 1 dose .XX ASDIRECTED KELLY Senna/Docusate Sodium (Senna Plus) 1 tab PO BID PRN PRN Reason: Constipation Sodium Chloride (Saline Flush) 10 ml FLUSH ASDIRECTED PRN PRN Reason: Keep Vein Open Last Admin: 05/01/18 23:01 Dose: 10 ml Assessment/Plan Comment:: I/P: Acute CHF -Was reportedly started on Lasix earlier in day before coming into ED (20mg PO daily) -Took one dose with no increase in urination or decrease in edema -Reports worsening orthopnea (has been sleeping in chair) and worsening pedal edema -Reports 4-5lb weight gain over past few days -40mg IVP lasix given in ED and on floor -CXR in ED suggests CHF -Discussed nogueira catheter for I&O monitoring - will hold off for now -Diuretic kajal - will continue IVP Lasix as he has been having excellent output -Monitor Electrolytes and creatinine -Pro-BNP 80518-->9575 -Echo pending -Engineering Manager Electronics consult Elevated troponin -Troponin 0.121-->0.106-->0.093-->0.108 -CKMB 2.1-->1.6-->2.1 -Likely 2/2 fluid overload but cannot R/O MS -EKG in ED shows Enlarged P waves in lead II, Q waves in V1-V3 and inferior waves. Early elevated ST segment in lead III, Prolonged QT. PVCs -Repeat EKG on floor essentially unchanged -Denies chest pain or other symptoms of ischemia -Continue to trend until down Chronic: Hard of Hearing CAD CHF HLD MS with 2 stent placement in 2001 ASCVD Hypotension Chronic cough Gout Chronic dizziness Plan: Admit to medical floor on telemetry Other orders as indicated above Home medications as ordered Routine AM labs PT/OT CM/SW for discharge planning DVT Prophylaxis: Lovenox Code status: Full Code; PCP: Dr. Asher
[2018-05-02] MEDS: Aspirin 81 MG Tab.Chew PO SCH (08:38)
[2018-05-02] MEDS ORDERED: Carvedilol 3.125 MG Tab PO ONE (10:22)
[2018-05-02] MEDS: Carvedilol 3.125 MG Tab PO SCH ×2 (10:44→20:37)
[2018-05-02] MEDS: Isosorbide Mononitrate 30 MG Tab.ER PO SCH (10:44)
[2018-05-02] MEDS ORDERED: Sodium Chloride 0.9% 250 ML IV SCH (10:45)
[2018-05-02] MEDS ORDERED: Furosemide 20 MG/2 ML VIAL IVPUSH SCH (18:00)
[2018-05-02] MEDS: Simvastatin 10 MG Tab PO SCH (20:38)
[2018-05-03] MEDS: Enoxaparin 30 MG/0.3 ML Syringe SUBCUT SCH ×2 (00:30→08:35)
--- NOTE | 2018-05-03 08:04 | PCM.PN ---
- General Info Date of Service: 05/03/18 Admission Dx/Problem (Free Text): Admission Diagnosis/Problem Admission Diagnosis/Problem CHF, Congestive heart failure Functional Status: Reports: Pain Controlled, Tolerating Diet, Ambulating, Urinating, Incentive Spirometry. Denies: New Symptoms - Review of Systems General: Reports: No Symptoms. Denies: Fever, Weakness, Fatigue, Malaise, Chills HEENT: Reports: No Symptoms. Denies: Sore Throat, Rhinitis Pulmonary: Reports: No Symptoms. Denies: Shortness of Breath, Cough, Sputum, Wheezing Cardiovascular: Reports: No Symptoms. Denies: Chest Pain, Palpitations, Dyspnea on Exertion, Edema Gastrointestinal: Reports: No Symptoms. Denies: Abdominal Pain, Constipation, Diarrhea, Nausea, Vomiting Genitourinary: Reports: No Symptoms. Denies: Pain Musculoskeletal: Reports: No Symptoms Skin: Reports: No Symptoms Neurological: Reports: No Symptoms. Denies: Confusion, Difficulty Walking, Gait Disturbance Psychiatric: Reports: No Symptoms - Patient Data Vitals - Most Recent: Last Vital Signs Temp 98.1 F 05/03/18 05:39 Pulse 85 05/03/18 05:39 Resp 18 05/03/18 05:39 BP 107/73 05/03/18 05:39 Pulse Ox 96 05/03/18 05:39 Weight - Most Recent: 168 lb 1 oz I&O - Last 24 Hours: Intake & Output 05/02/18 05/03/18 05/03/18 22:59 06:59 14:59 Intake Total 690 300 Output Total 2500 Balance -1810 300 Lab Results Last 24 Hours: Laboratory Results - last 24 hr 05/02/18 05/02/18 05/02/18 Range/Units 05:47 05:47 10:22 WBC (4.23-9.07) K/mm3 RBC (4.63-6.08) M/mm3 Hgb (13.7-17.5) gm/L Hct (40.1-51.0) % MCV (79.0-92.2) fl MCH (25.7-32.2) pg MCHC (32.2-35.5) g/dl RDW Std Deviation (35.1-43.9) fL Plt Count (163-337) K/mm3 MPV (9.4-12.3) fl Neut % (Auto) (34.0-67.9) % Lymph % (Auto) (21.8-53.1) % [place] % (Auto) (5.3-12.2) % Eos % (Auto) (0.8-7.0) Baso % (Auto) (0.1-1.2) % Neut # (Auto) (1.78-5.38) K/mm3 Lymph # (Auto) (1.32-3.57) K/mm3 [place] # (Auto) (0.30-0.82) K/mm3 Eos # (Auto) (0.04-0.54) K/mm3 Baso # (Auto) (0.01-0.08) K/mm3 Sodium (136-145) mEq/L Potassium (3.5-5.1) mEq/L Chloride (98-107) mEq/L Carbon Dioxide (21-32) mEq/L Anion Gap (5-15) BUN (7-18) mg/dL Creatinine (0.7-1.3) mg/dL Est Cr Clr Drug Dosing mL/min Estimated GFR (MDRD) (>60) mL/min BUN/Creatinine Ratio (14-18) Glucose (83-115) mg/dL Calcium (8.5-10.1) mg/dL Magnesium (1.8-2.4) mg/dl CK-MB (CK-2) 1.6 (0-3.6) ng/ml Troponin I 0.093 H* (0.00-0.056) ng/mL NT-Pro-B Natriuret Pep 9575 H (0-450) pg/mL Triglycerides 72 (<150) mg/dL Cholesterol 157 (<200) mg/dL LDL Cholesterol Direct 94 (<100) mg/dL HDL Cholesterol 62.0 H (40-59) mg/dL 05/02/18 05/02/18 05/03/18 Range/Units 12:20 18:45 05:58 WBC 5.48 (4.23-9.07) K/mm3 RBC 4.46 L (4.63-6.08) M/mm3 Hgb 13.3 L (13.7-17.5) gm/L Hct 40.8 (40.1-51.0) % MCV 91.5 (79.0-92.2) fl MCH 29.8 (25.7-32.2) pg MCHC 32.6 (32.2-35.5) g/dl RDW Std Deviation 48.6 H (35.1-43.9) fL Plt Count 175 (163-337) K/mm3 MPV 11.5 (9.4-12.3) fl Neut % (Auto) 58.9 (34.0-67.9) % Lymph % (Auto) 26.8 (21.8-53.1) % [place] % (Auto) 9.5 (5.3-12.2) % Eos % (Auto) 4.2 (0.8-7.0) Baso % (Auto) 0.4 (0.1-1.2) % Neut # (Auto) 3.23 (1.78-5.38) K/mm3 Lymph # (Auto) 1.47 (1.32-3.57) K/mm3 [place] # (Auto) 0.52 (0.30-0.82) K/mm3 Eos # (Auto) 0.23 (0.04-0.54) K/mm3 Baso # (Auto) 0.02 (0.01-0.08) K/mm3 Sodium (136-145) mEq/L Potassium (3.5-5.1) mEq/L Chloride (98-107) mEq/L Carbon Dioxide (21-32) mEq/L Anion Gap (5-15) BUN (7-18) mg/dL Creatinine (0.7-1.3) mg/dL Est Cr Clr Drug Dosing mL/min Estimated GFR (MDRD) (>60) mL/min BUN/Creatinine Ratio (14-18) Glucose (83-115) mg/dL Calcium (8.5-10.1) mg/dL Magnesium (1.8-2.4) mg/dl CK-MB (CK-2) 2.1 2.3 (0-3.6) ng/ml Troponin I 0.108 H* 0.066 H* (0.00-0.056) ng/mL NT-Pro-B Natriuret Pep (0-450) pg/mL Triglycerides (<150) mg/dL Cholesterol (<200) mg/dL LDL Cholesterol Direct (<100) mg/dL HDL Cholesterol (40-59) mg/dL 05/03/18 Range/Units 05:58 WBC (4.23-9.07) K/mm3 RBC (4.63-6.08) M/mm3 Hgb (13.7-17.5) gm/L Hct (40.1-51.0) % MCV (79.0-92.2) fl MCH (25.7-32.2) pg MCHC (32.2-35.5) g/dl RDW Std Deviation (35.1-43.9) fL Plt Count (163-337) K/mm3 MPV (9.4-12.3) fl Neut % (Auto) (34.0-67.9) % Lymph % (Auto) (21.8-53.1) % [place] % (Auto) (5.3-12.2) % Eos % (Auto) (0.8-7.0) Baso % (Auto) (0.1-1.2) % Neut # (Auto) (1.78-5.38) K/mm3 Lymph # (Auto) (1.32-3.57) K/mm3 [place] # (Auto) (0.30-0.82) K/mm3 Eos # (Auto) (0.04-0.54) K/mm3 Baso # (Auto) (0.01-0.08) K/mm3 Sodium 138 (136-145) mEq/L Potassium 4.1 (3.5-5.1) mEq/L Chloride 103 (98-107) mEq/L Carbon Dioxide 26 (21-32) mEq/L Anion Gap 13.1 (5-15) BUN 26 H (7-18) mg/dL Creatinine 1.2 (0.7-1.3) mg/dL Est Cr Clr Drug Dosing 54.07 mL/min Estimated GFR (MDRD) 59 (>60) mL/min BUN/Creatinine Ratio 21.7 H (14-18) Glucose 102 (83-115) mg/dL Calcium 9.0 (8.5-10.1) mg/dL Magnesium 2.1 (1.8-2.4) mg/dl CK-MB (CK-2) (0-3.6) ng/ml Troponin I (0.00-0.056) ng/mL NT-Pro-B Natriuret Pep (0-450) pg/mL Triglycerides (<150) mg/dL Cholesterol (<200) mg/dL LDL Cholesterol Direct (<100) mg/dL HDL Cholesterol (40-59) mg/dL Med Orders - Current: Current Medications Acetaminophen (Tylenol) 650 mg PO Q4H PRN PRN Reason: Pain (mild 1-3) Aspirin (Aspirin) 81 mg PO DAILY [facility] Last Admin: 05/02/18 08:38 Dose: 81 mg Bisacodyl (Dulcolax) 5 mg PO DAILY PRN PRN Reason: Constipation Carvedilol (Coreg) 3.125 mg PO BID [facility] Last Admin: 05/02/18 20:37 Dose: 3.125 mg Docusate Sodium (Colace) 100 mg PO BID PRN PRN Reason: Constipation Enoxaparin Sodium (Lovenox) 30 mg SUBCUT Q24H [facility] Furosemide (Lasix) 20 mg IVPUSH DAILY [facility] Hydralazine HCl (Apresoline) 20 mg IVPUSH Q4H PRN PRN Reason: Hypertension Isosorbide Mononitrate (Imdur) 30 mg PO DAILY [facility] Last Admin: 05/02/18 10:44 Dose: Not Given Magnesium Sulfate (Pharmacy To Dose - Magnesium Replacement) 0 dose .XX ASDIRECTED PRN PRN Reason: RX TO WATCH MAG Metoprolol Tartrate (Lopressor) 5 mg IVPUSH Q4H PRN PRN Reason: Tachycardia Nitroglycerin (Nitrostat) 0.4 mg SL Q5M PRN PRN Reason: Chest Pain Ondansetron HCl (Zofran) 4 mg IV Q6H PRN PRN Reason: Nausea/Vomiting Polyethylene Glycol (Miralax) 17 gm PO DAILY PRN PRN Reason: Constipation Potassium Chloride (Pharmacy To Dose - Potassium Replacement) 0 dose .XX ASDIRECTED PRN PRN Reason: RX TO WATCH K Senna/Docusate Sodium (Senna Plus) 1 tab PO BID PRN PRN Reason: Constipation Simvastatin (Zocor) 5 mg PO BEDTIME [facility] Last Admin: 05/02/18 20:38 Dose: 5 mg Sodium Chloride (Saline Flush) 10 ml FLUSH ASDIRECTED PRN PRN Reason: Keep Vein Open Last Admin: 05/01/18 23:01 Dose: 10 ml Discontinued Medications Carvedilol (Coreg) 3.125 mg PO ONETIME ONE Stop: 05/02/18 10:23 Last Admin: 05/02/18 10:43 Dose: 3.125 mg Enoxaparin Sodium (Lovenox) 30 mg SUBCUT Q24H [facility] Last Admin: 05/03/18 00:30 Dose: Not Given Furosemide (Lasix) 40 mg IVPUSH NOW ONE Stop: 05/01/18 22:28 Last Admin: 05/01/18 23:00 Dose: 40 mg Furosemide (Lasix) 40 mg IVPUSH 0600 [facility] Last Admin: 05/02/18 05:55 Dose: 40 mg Furosemide (Lasix) 40 mg IVPUSH Q12H KELLY Furosemide (Lasix) 20 mg IVPUSH Q12HR KELLY Furosemide (Lasix) 20 mg IVPUSH Q12H [facility] Sodium Chloride (Normal Saline) 250 mls @ 999 mls/hr IV ASDIRECTED [facility] Last Admin: 05/02/18 10:43 Dose: 999 mls/hr - Exam Quality Assessment: DVT Prophylaxis. No: Supplemental Oxygen General: Alert, Oriented, Cooperative, No Acute Distress HEENT: Pupils Equal, Pupils Reactive, EOMI, Mucous Membr. Moist/[place] Neck: Supple, Trachea Midline, No JVD Lungs: Clear to Auscultation, Normal Respiratory Effort Cardiovascular: Regular Rate, Regular Rhythm GI/Abdominal Exam: Normal Bowel Sounds, Soft, Non-Tender, No Distention, No Abnormal Bruit (Male) Exam: Deferred Back Exam: Normal Inspection, Full Range of Motion Extremities: Normal Inspection, Normal Range of Motion, Non-Tender, No Pedal Edema, Normal Capillary Refill Peripheral Pulses: 2+: Radial (L), Radial (R), Dorsalis Pedis (L), Dorsalis Pedis (R) Skin: Warm, Dry, Intact Neurological: No New Focal Deficit Psy/Mental Status: Alert, Normal Affect, Normal Mood - Problem List & Annotations (1) Congestive heart failure (CHF) SNOMED Code(s): 36765289 Code(s): I50.9 - HEART FAILURE, UNSPECIFIED Status: Acute Priority: High Current Visit: Yes Qualifiers: Heart failure type: diastolic Heart failure chronicity: acute on chronic Qualified Code(s): I50.33 - Acute on chronic diastolic (congestive) heart failure (2) Elevated troponin SNOMED Code(s): 357429273, 081843689, 364312091 Code(s): R74.8 - ABNORMAL LEVELS OF OTHER SERUM ENZYMES Status: Acute Priority: High Current Visit: Yes - Problem List Review Problem List Initiated/Reviewed/Updated: Yes - My Orders Last 24 Hours: My Active Orders 05/02/18 07:28 Nitroglycerin [Nitrostat] 0.4 mg SL Q5M PRN 05/02/18 07:32 Height and Weight [RC] 04 Oxygen Therapy [RC] PRN VTE/DVT Education [RC] DAILY Vital Signs [RC] 03,09,15,21 Consult 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 [CONS] Routine Consult to Machine Compositor [CONS] Routine Consult to Spiritual Care [CONS] Routine OT Evaluation and Treatment [CONS] Routine PT Evaluation and Treatment [CONS] Routine Bisacodyl [Dulcolax] 5 mg PO DAILY PRN Docusate Sodium [Colace] 100 mg PO BID PRN Docusate Sodium/Sennosides [Senna Plus] 1 tab PO BID PRN Ondansetron [Zofran] 4 mg IV Q6H PRN Polyethylene Glycol 3350 [MiraLAX] 17 gm PO DAILY PRN 05/02/18 07:33 Intake and Output [RC] 04,16 Pulse Oximetry [RC] PRN 05/02/18 07:36 Metoprolol Tartrate [Lopressor] 5 mg IVPUSH Q4H PRN hydrALAZINE [Apresoline] 20 mg IVPUSH Q4H PRN 05/02/18 07:45 Pharmacy to Dose - Magnesium R [Pharmacy to Dose - Magnesium Replacement] 0 dose .XX ASDIRECTED PRN Pharmacy to Dose - Potassium R [Pharmacy to Dose - Potassium Replacement] 0 dose .XX ASDIRECTED PRN 05/02/18 09:00 Aspirin 81 mg PO DAILY Carvedilol [Coreg] 3.125 mg PO BID Isosorbide Mononitrate [Imdur] 30 mg PO DAILY 05/02/18 09:40 EKG 12 Lead [EKG Documentation Completion] [RC] STAT 05/02/18 21:00 Simvastatin [Zocor] 5 mg PO BEDTIME 05/03/18 05:58 PRO B-TYPE NATRIUR PEPT,BNPPRO [CHEM] DAILY 05/03/18 08:00 Chest 2V [CR] Routine 05/03/18 09:00 Furosemide [Lasix] 20 mg IVPUSH DAILY 05/04/18 05:11 BASIC METABOLIC PANEL,BMP [CHEM] AM CBC WITH AUTO DIFF [HEME] AM MAGNESIUM [CHEM] AM PRO B-TYPE NATRIUR PEPT,BNPPRO [CHEM] DAILY 05/05/18 05:11 BASIC METABOLIC PANEL,BMP [CHEM] AM CBC WITH AUTO DIFF [HEME] AM MAGNESIUM [CHEM] AM PRO B-TYPE NATRIUR PEPT,BNPPRO [CHEM] DAILY 05/06/18 05:11 BASIC METABOLIC PANEL,BMP [CHEM] AM CBC WITH AUTO DIFF [HEME] AM MAGNESIUM [CHEM] AM PRO B-TYPE NATRIUR PEPT,BNPPRO [CHEM] DAILY - Plan Plan:: I/P: Acute CHF -Was reportedly started on Lasix earlier in day before coming into ED (20mg PO daily) -Took one dose with no increase in urination or decrease in edema -Reports worsening orthopnea (has been sleeping in chair) and worsening pedal edema -Reports 4-5lb weight gain over past few days -40mg IVP lasix given in ED and on floor -CXR in ED suggests CHF -5lb weight loss so far -Discussed nogueira catheter for I&O monitoring - will hold off for now -Diuretic kajal - will continue IVP Lasix as he has been having excellent output -Monitor Electrolytes and creatinine -Pro-BNP 38403-->9575-->6555 -Echo obtained 05/02/18 1. LVEF, by visual estimation, is <20% 2. Restrictive (grade 3) pattern of LV diastolic filling 3. The left ventricular internal cavity size is severely increased 4. Mildly reduced right ventricular systolic function 5. Severely dilated left atrium 6. Mildly dilated right atrium 7. There is mild aortic valve sclerosis 8. Mild to moderate aortic valve regurgitation 9. Moderate mitral valve regurgitation 10. Trace tricuspid valve regurgitation 11. Mild dilation of the aortic root and ascending aorta 12. Severe generalized hypokinesis of the left ventricle -Machine Compositor consult -Start metolazone 2.5mg Tuesday and - hold if BP less than 100/60 -Start Lasix 20mg Tuesday, Tuesday, Tuesday -Fluid and sodium restriction -Will need follow-up with Cardiology after discharge Inactive: Elevated troponin -Troponin 0.121-->0.106-->0.093-->0.108-->0.066 -CKMB 2.1-->1.6-->2.1-->2.3 -Likely 2/2 fluid overload but cannot R/O [place] -EKG in ED shows Enlarged P waves in lead II, Q waves in V1-V3 and inferior waves. Early elevated ST segment in lead III, Prolonged QT. PVCs -Repeat EKG on floor essentially unchanged -Denies chest pain or other symptoms of ischemia -Continue to trend until down Chronic: Hard of Hearing CAD CHF HLD [place] with 2 stent placement in 2001 ASCVD Hypotension Chronic cough Gout Chronic dizziness Plan: Admit to medical floor on telemetry Other orders as indicated above Home medications as ordered Routine AM labs PT/OT CM/SW for discharge planning DVT Prophylaxis: Lovenox Code status: Full Code; PCP: Dr. Asher
[2018-05-03] MEDS: Aspirin 81 MG Tab.Chew PO SCH (08:36)
[2018-05-03] MEDS: Carvedilol 3.125 MG Tab PO SCH ×2 (08:48→20:35)
[2018-05-03] MEDS: Isosorbide Mononitrate 30 MG Tab.ER PO SCH (08:49)
[2018-05-03] MEDS ORDERED: Furosemide 20 MG/2 ML VIAL IVPUSH SCH (09:00)
[2018-05-03] MEDS ORDERED: Furosemide 20 MG Tab PO SCH (09:00)
--- NOTE | 2018-05-03 10:14 | CR ---
Chest: Two views of the chest were obtained. Comparison: Prior chest x-ray of 05/01/18. Heart is enlarged. Tortuous thoracic aorta is seen. Lungs show no acute parenchymal change. Bony structures show mild degenerative change scattered within the spine. Impression: 1. Stable cardiomegaly. Nothing acute is appreciated. Diagnostic code #2
[2018-05-03] MEDS: guaiFENesin 600 MG Tab.ER PO SCH (12:49)
[2018-05-03] MEDS ORDERED: Albuterol/Ipratropium 3.0-0.5 MG/3 ML Neb Soln NEB PRN (15:24)
[2018-05-03] MEDS ORDERED: Furosemide 20 MG/2 ML VIAL IVPUSH ONE (16:00)
[2018-05-03] MEDS: Simvastatin 10 MG Tab PO SCH (20:34)
[2018-05-04] MEDS: Carvedilol 3.125 MG Tab PO SCH (09:20)
[2018-05-04] MEDS: guaiFENesin 600 MG Tab.ER PO SCH (09:20)
[2018-05-04] MEDS: Isosorbide Mononitrate 30 MG Tab.ER PO SCH (09:20)
[2018-05-04] MEDS: Aspirin 81 MG Tab.Chew PO SCH (09:20)
[2018-05-04] MEDS: Enoxaparin 30 MG/0.3 ML Syringe SUBCUT SCH (09:21)
--- NOTE | 2018-05-04 09:36 | PCM.DCSUM1 ---
Discharge Summary - Hospital Course HPI Initial Comments: Anish Velez is a 77 yo male patient who presents to our ED on 05/01/18 with worsening dyspnea. He reports his been having worsening orthopnea over the past 3-4 days and because of this has been sleeping in the chair. He's noticed increased shortness of breath when walking to the bathroom or upstairs. His history of a myocardial infarction in 2001 that required 2 stents. Reports no recent chest pain. He was seen earlier at the clinic and placed on 20 mg oral Lasix by Dr. Asher which he took took at 1800 prior and the day and noticed no increased urine output or improve diuresis. Denies cough, sputum, fever, chills. Appetite has been poor for the last 3 months or so. Reports he thinks he gained about 4-5 pounds of weight in the last week to 10 days and noticed worsening edema in his feet and ankles. In the ED Was 36.7 Celsius. Pulse 84. Respirations 20. Blood pressure 133/ 92. Pulse ox 90%. 12-lead EKG is obtained and interpreted by the ED provider as showing left axis deviation with an enlarged P wave in lead 2. Consider possible left atrial hypertrophy. Q waves are present in V1, V2, and V3. V5 and V6 are skewed by prior PVCs. There is Q waves noted in inferior leads suggesting old inferior wall myocardial infarction. ST segment is elevated in lead 3 and QT is prolonged. Labs are obtained: WBC is 6.09. Hemoglobin 12.3. Hematocrit 30.3. He is macrocytic. Platelets are good at 171,000. Neutrophils are elevated at 65%. There is no bandemia. PT is 12.4. INR is 1.14. Sodium is 138. Potassium 4.4. Chloride 105. Carbon oxide 23. Anion gap 14.4. BUN is 26. Creatinine 1.2. EGFR is 59. Glucose 113. Calcium 9.2. Magnesium 2.1. Bilirubin is 0.6. AST 30, ALT 53, alkaline phosphatase 62. Troponin is elevated at 0.121. CRP is 0.5. Protein 7.4. Albumin 3.5. ESR is 11. CK-MB is 2.1. ProBNP is 10,690. ED provider notes JVD and fine crackles in both lung bases worse on the left. A 40 mg IV push Lasix. Chest x-rays obtained and interpreted by Dr. Contreras is having enlarged heart and slightly increased pulmonary vessels. This represents mild changes of CHF. Patient reported improved breathing after having the IV Lasix. He also was noted to have about a liter of urine output. Suspect elevated troponins due to elevated BNP. He carries a history of: Hard of hearing, CAD, heart failure, HLD, [place] with 2 stents placed in 2001, ASCVD, hypotension, chronic cough, cold polyps, gout, chronic dizziness. He was never a smoker. He says really admitted to the medical floor on telemetry. He is a full code. His PCP is Dr. Asher. Diagnosis: Stroke: No - Discharge Data Discharge Date: 05/04/18 (Admit Date:05/02/18) Discharge Disposition: Home, Self-Care 01 Condition: Good - Discharge Diagnosis/Problem(s) (1) Congestive heart failure (CHF) SNOMED Code(s): 10107116 ICD Code: I50.9 - HEART FAILURE, UNSPECIFIED Status: Acute Priority: High Qualifiers: Heart failure type: diastolic Heart failure chronicity: acute on chronic Qualified Code(s): I50.33 - Acute on chronic diastolic (congestive) heart failure (2) Elevated troponin SNOMED Code(s): 900722937, 848161273, 305081891 ICD Code: R74.8 - ABNORMAL LEVELS OF OTHER SERUM ENZYMES Status: Acute Priority: High - Patient Summary/Data Consults: Consultations 05/02/18 07:32 Consult to Case Management/Picking Machine Operator Helper [CONS] Routine Consult to Clerk Telegraph Service [CONS] Routine Consult to Spiritual Care [CONS] Routine OT Evaluation and Treatment [CONS] Routine PT Evaluation and Treatment [CONS] Routine Labs Pending at D/C: None Recommended Follow-up Testing/Procedures: Follow-up with PCP within 7-10 days of discharge. Follow-up with cardiology as scheduled. Hospital Course: I/P: Acute CHF -Was reportedly started on Lasix earlier in day before coming into ED (20mg PO daily) -Took one dose with no increase in urination or decrease in edema -Reports worsening orthopnea (has been sleeping in chair) and worsening pedal edema -Reports 4-5lb weight gain over past few days -40mg IVP lasix given in ED and on floor -CXR in ED suggests CHF -5lb weight loss so far -Discussed nogueira catheter for I&O monitoring - will hold off for now -Diuretic kajal - will continue IVP Lasix as he has been having excellent output -Monitor Electrolytes and creatinine -Pro-BNP 48195-->9575-->9455-->7439 -Echo obtained 05/02/18 1. LVEF, by visual estimation, is <20% 2. Restrictive (grade 3) pattern of LV diastolic filling 3. The left ventricular internal cavity size is severely increased 4. Mildly reduced right ventricular systolic function 5. Severely dilated left atrium 6. Mildly dilated right atrium 7. There is mild aortic valve sclerosis 8. Mild to moderate aortic valve regurgitation 9. Moderate mitral valve regurgitation 10. Trace tricuspid valve regurgitation 11. Mild dilation of the aortic root and ascending aorta 12. Severe generalized hypokinesis of the left ventricle -Clerk Telegraph Service consult -Start metolazone 2.5mg Tuesday and - hold if BP less than 100/60 -Start Lasix 20mg Tuesday, Tuesday, Tuesday -Fluid and sodium restriction -Will need follow-up with Cardiology after discharge Inactive: Elevated troponin -Troponin 0.121-->0.106-->0.093-->0.108-->0.066 -CKMB 2.1-->1.6-->2.1-->2.3 -Likely 2/2 fluid overload but cannot R/O TX -EKG in ED shows Enlarged P waves in lead II, Q waves in V1-V3 and inferior waves. Early elevated ST segment in lead III, Prolonged QT. PVCs -Repeat EKG on floor essentially unchanged -Denies chest pain or other symptoms of ischemia -Continue to trend until down Chronic: Hard of Hearing CAD CHF HLD [place] with 2 stent placement in 2001 ASCVD Hypotension Chronic cough Gout Chronic dizziness Plan: Admit to medical floor on telemetry Other orders as indicated above Home medications as ordered Routine AM labs PT/OT CM/SW for discharge planning DVT Prophylaxis: Lovenox Code status: Full Code; PCP: Dr. Lb Oconnell did very well. He was brought in for heart failure and elevated troponins. His trop did trend down and he denied any chest pain. He was given IVP lasix and responded very rapidly to this, loosing 5lbs. He is essentially diuretic kajal has he had just been started on 20 mg daily Lasix the day prior to admission and had taken one dose. Echo was obtained as above and shows a very sick heart with an ejection fraction of less than 20%. 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 He reports he has not seen his concrete panel installer in some time and in fact his concrete panel installer no longer sees patients in the area. Case was discussed with Dr. Ballard who suggested patient began 20 mg Lasix on Tuesday and Tuesday. He will alternate with metolazone 2.5 mg on Tuesday and . Both of these medications should be taken after checking blood pressure and only taken if blood pressure is over 100/60. He was instructed to take a second dose of Lasix should he noticed significant weight gain or swelling and contact his PCP. He was instructed to check and record his blood pressure every morning along with his weight. He was placed on a 2 L fluid and 2 g sodium restriction. Cardiology point was scheduled with Dr. Tillman. He was instructed to follow-up with his PCP, Dr. Asher within 7-10 days or sooner if needed. His electrolytes and kidney function remained good. He did see our dietitian to discuss heart failure diet all along with sodium and fluid restrictions. Family was heavily involved in his care and his son was present at discharge. He was instructed to follow-up with his primary care provider should he have any breath, worsening edema, or other symptoms of failure. He was discharged today. - Patient Instructions Diet: Low Sodium, Fluid Restriction Fluid Restriction: 2000 mL Activity: As Tolerated Showering/Bathing: May Shower Notify Provider of: Fever, Increased Pain, Swelling and Redness, Nausea and/or Vomiting Other/Special Instructions: -Follow-up with your PCP, Dr. Asher within 7-10 days of discharge. -Follow-up with cardiology at next available appointment. - Resume home medications as indicated. Your lasix and imdur dosing was changed. -Your lasix dosing was changed to Tuesday, Tuesday, Tuesday. -Should you notice swelling or shortness of breath. Take another lasix pill and contact Dr. Rees office. -You need to watch your fluid intake. This includes water, soda, soup, coffee, etc. You should only take in 2L (like a large pop jug) of fluid daily. -Watch your sodium intake. Try to keep below 2 grams of sodium daily. - You saw our dry pan operator and she gave you some information. If you wish to continue seeing her you may schedule with them directly through the hospital. - Take your blood pressure dialy. Record it in a journal and bring this with to all medical appointments. -If your blood pressure is less than 100/60 DO NOT TAKE YOUR LASIX or METOLAZONE. Note it and contact Dr. Rees office. -Weigh yourself daily. Record this in a journal (along with your blood pressure) and bring it to all medical appointments. -Should symptoms return or worsen contact Dr. Rees office or return to the Emergency Department. - Discharge Plan *PRESCRIPTION DRUG MONITORING PROGRAM REVIEWED*: No *COPY OF PRESCRIPTION DRUG MONITORING REPORT IN PATIENT JACK: No Prescriptions/Med Rec: Furosemide [Lasix] 20 mg PO ASDIRECTED #20 tablet Isosorbide Mononitrate [Imdur] 15 mg PO DAILY #15 tab.er metOLazone [Zaroxolyn] 2.5 mg PO TuTh #20 tablet Home Medications: Home Meds Aspirin [[place] Aspirin] 81 mg PO DAILY 07/13/17 [History] Carvedilol [Coreg] 3.12 mg PO DAILY 07/13/17 [History] Enalapril Maleate [Vasotec] 5 mg PO BEDTIME 07/13/17 [History] Nitroglycerin [Nitrostat] 0.4 mg PO Q5M PRN 07/13/17 [History] atorvaSTATin [Lipitor] 10 mg PO DAILY 07/13/17 [History] Furosemide [Lasix] 20 mg PO ASDIRECTED #20 tablet 05/04/18 [Rx] Isosorbide Mononitrate [Imdur] 15 mg PO DAILY #15 tab.er 05/04/18 [Rx] metOLazone [Zaroxolyn] 2.5 mg PO TuTh #20 tablet 05/04/18 [Rx] Oxygen Therapy Mode: Room Air Patient Handouts: Fluid Restriction, Low-Sodium Eating Plan, Heart Failure, [id number] Referrals: Yvonne Tillman MD [Physician] - 05/08/18 3:20 pm (Cardiology referral. This appointment is at [facility] in [place] at 2:20 p.m. Mountain time. Call [phone] if this appointment doesn't work with your schedule.) Carroll Asher MD [Primary Care Provider] - 05/12/18 1:00 pm (Please follow up with Dr. Asher on May, at 1300. ) - Discharge Summary/Plan Comment DC Time >30 min.: Yes (45 minutes) - General Info Date of Service: 05/04/18 Admission Dx/Problem (Free Text: Admission Diagnosis/Problem Admission Diagnosis/Problem CHF, Congestive heart failure Subjective Update: In to see Anish. He reports he feels very good. He is down 5lbs from admission. His son is in room. Both are updated extensively on discharge plan and follow- up plan. He has a fluid and sodium restriction. Neither have any concerns. No nursing concerns. He will be discharged today. Functional Status: Reports: Pain Controlled, Tolerating Diet, Ambulating, Urinating. Denies: New Symptoms - Review of Systems General: Reports: No Symptoms. Denies: Fever, Weakness, Fatigue, Malaise, Chills HEENT: Reports: No Symptoms. Denies: Headaches, Sore Throat Pulmonary: Reports: No Symptoms. Denies: Shortness of Breath, Cough, Sputum, Wheezing Cardiovascular: Reports: No Symptoms. Denies: Chest Pain, Palpitations, Dyspnea on Exertion, Edema, Lightheadedness Gastrointestinal: Reports: No Symptoms. Denies: Abdominal Pain, Constipation, Diarrhea, Nausea, Vomiting Genitourinary: Reports: No Symptoms. Denies: Pain Musculoskeletal: Reports: No Symptoms Skin: Reports: No Symptoms Neurological: Reports: No Symptoms. Denies: Confusion, Difficulty Walking, Gait Disturbance Psychiatric: Reports: No Symptoms - Patient Data Vitals - Most Recent: Last Vital Signs Temp 97.3 F 05/04/18 07:45 Pulse 73 05/04/18 09:20 Resp 16 05/04/18 07:45 BP 105/67 05/04/18 09:20 Pulse Ox 96 05/04/18 07:45 Weight - Most Recent: 168 lb 8 oz I&O - Last 24 hours: Intake & Output 05/03/18 05/04/18 05/04/18 22:59 06:59 14:59 Intake Total 640 200 Output Total 450 700 Balance 190 -500 Lab Results - Last 24 hrs: Laboratory Results - last 24 hr 05/04/18 05/04/18 05/04/18 Range/Units 05:38 05:38 05:38 WBC 5.19 (4.23-9.07) K/mm3 RBC 4.37 L (4.63-6.08) M/mm3 Hgb 12.9 L (13.7-17.5) gm/L Hct 40.2 (40.1-51.0) % MCV 92.0 (79.0-92.2) fl MCH 29.5 (25.7-32.2) pg MCHC 32.1 L (32.2-35.5) g/dl RDW Std Deviation 48.6 H (35.1-43.9) fL Plt Count 175 (163-337) K/mm3 MPV 11.6 (9.4-12.3) fl Neut % (Auto) 54.9 (34.0-67.9) % Lymph % (Auto) 29.9 (21.8-53.1) % [place] % (Auto) 10.6 (5.3-12.2) % Eos % (Auto) 4.2 (0.8-7.0) Baso % (Auto) 0.4 (0.1-1.2) % Neut # (Auto) 2.85 (1.78-5.38) K/mm3 Lymph # (Auto) 1.55 (1.32-3.57) K/mm3 [place] # (Auto) 0.55 (0.30-0.82) K/mm3 Eos # (Auto) 0.22 (0.04-0.54) K/mm3 Baso # (Auto) 0.02 (0.01-0.08) K/mm3 Sodium 137 (136-145) mEq/L Potassium 4.2 (3.5-5.1) mEq/L Chloride 103 (98-107) mEq/L Carbon Dioxide 25 (21-32) mEq/L Anion Gap 13.2 (5-15) BUN 25 H (7-18) mg/dL Creatinine 1.1 (0.7-1.3) mg/dL Est Cr Clr Drug Dosing 59.13 mL/min Estimated GFR (MDRD) > 60 (>60) mL/min BUN/Creatinine Ratio 22.7 H (14-18) Glucose 103 (83-115) mg/dL Calcium 9.2 (8.5-10.1) mg/dL Magnesium 2.2 (1.8-2.4) mg/dl NT-Pro-B Natriuret Pep 4797 H (0-450) pg/mL Med Orders - Current: Current Medications Acetaminophen (Tylenol) 650 mg PO Q4H PRN PRN Reason: Pain (mild 1-3) Albuterol/Ipratropium (Duoneb 3.0-0.5 Mg/3 Ml) 3 ml NEB Q4HRRT PRN PRN Reason: SOB/WHEEZING Last Admin: 05/03/18 15:34 Dose: 3 ml Aspirin (Aspirin) 81 mg PO DAILY [facility] Last Admin: 05/04/18 09:20 Dose: 81 mg Bisacodyl (Dulcolax) 5 mg PO DAILY PRN PRN Reason: Constipation Carvedilol (Coreg) 3.125 mg PO BID [facility] Last Admin: 05/04/18 09:20 Dose: 3.125 mg Docusate Sodium (Colace) 100 mg PO BID PRN PRN Reason: Constipation Enoxaparin Sodium (Lovenox) 30 mg SUBCUT Q24H [facility] Last Admin: 05/04/18 09:21 Dose: 30 mg Furosemide (Lasix) 20 mg PO MoWeFr [facility] Last Admin: 05/03/18 12:34 Dose: Not Given Guaifenesin (Mucinex) 600 mg PO DAILY [facility] Last Admin: 05/04/18 09:20 Dose: 600 mg Hydralazine HCl (Apresoline) 20 mg IVPUSH Q4H PRN PRN Reason: Hypertension Isosorbide Mononitrate (Imdur) 30 mg PO DAILY [facility] Last Admin: 05/04/18 09:20 Dose: 30 mg Magnesium Sulfate (Pharmacy To Dose - Magnesium Replacement) 0 dose .XX ASDIRECTED PRN PRN Reason: RX TO WATCH MAG Metolazone (Zaroxolyn) 2.5 mg PO TuTh [facility] Metoprolol Tartrate (Lopressor) 5 mg IVPUSH Q4H PRN PRN Reason: Tachycardia Nitroglycerin (Nitrostat) 0.4 mg SL Q5M PRN PRN Reason: Chest Pain Ondansetron HCl (Zofran) 4 mg IV Q6H PRN PRN Reason: Nausea/Vomiting Polyethylene Glycol (Miralax) 17 gm PO DAILY PRN PRN Reason: Constipation Potassium Chloride (Pharmacy To Dose - Potassium Replacement) 0 dose .XX ASDIRECTED PRN PRN Reason: RX TO WATCH K Senna/Docusate Sodium (Senna Plus) 1 tab PO BID PRN PRN Reason: Constipation Simvastatin (Zocor) 5 mg PO BEDTIME [facility] Last Admin: 05/03/18 20:34 Dose: 5 mg Sodium Chloride (Saline Flush) 10 ml FLUSH ASDIRECTED PRN PRN Reason: Keep Vein Open Last Admin: 05/01/18 23:01 Dose: 10 ml Discontinued Medications Carvedilol (Coreg) 3.125 mg PO ONETIME ONE Stop: 05/02/18 10:23 Last Admin: 05/02/18 10:43 Dose: 3.125 mg Enoxaparin Sodium (Lovenox) 30 mg SUBCUT Q24H [facility] Last Admin: 05/03/18 00:30 Dose: Not Given Furosemide (Lasix) 40 mg IVPUSH NOW ONE Stop: 05/01/18 22:28 Last Admin: 05/01/18 23:00 Dose: 40 mg Furosemide (Lasix) 40 mg IVPUSH 0600 [facility] Last Admin: 05/02/18 05:55 Dose: 40 mg Furosemide (Lasix) 40 mg IVPUSH Q12H [place] Furosemide (Lasix) 20 mg IVPUSH Q12HR [facility] Furosemide (Lasix) 20 mg IVPUSH Q12H [facility] Furosemide (Lasix) 20 mg IVPUSH DAILY [facility] Last Admin: 05/03/18 08:49 Dose: Not Given Furosemide (Lasix) 10 mg IVPUSH NOW ONE Stop: 05/03/18 16:01 Last Admin: 05/03/18 16:24 Dose: 10 mg Sodium Chloride (Normal Saline) 250 mls @ 999 mls/hr IV ASDIRECTED [facility] Last Admin: 05/02/18 10:43 Dose: 999 mls/hr - Exam Quality Assessment: Reports: DVT Prophylaxis General: Reports: Alert, Oriented, Cooperative, No Acute Distress HEENT: Reports: Pupils Equal, Pupils Reactive, EOMI, Mucous Membr. Moist/[place]: Reports: Supple, Trachea Midline, No JVD Lungs: Reports: Clear to Auscultation, Normal Respiratory Effort Cardiovascular: Reports: Regular Rate, Regular Rhythm GI/Abdominal Exam: Normal Bowel Sounds, Soft, Non-Tender, No Distention, No Abnormal Bruit (Male) Exam: Deferred Rectal (Males) Exam: Deferred Back Exam: Reports: Normal Inspection, Full Range of Motion Extremities: Normal Inspection, Normal Range of Motion, Non-Tender, No Pedal Edema, Normal Capillary Refill Skin: Reports: Warm, Dry, Intact Neurological: Reports: No New Focal Deficit Psy/Mental Status: Reports: Alert, Normal Affect, Normal Mood
[2018-05-04] MEDS ORDERED: Metolazone 2.5 MG Tab PO SCH (12:00)
== END 2018-05-04 15:20 | disposition home or self-care (01) | DRG 293 ==
LOC: JD.ED 21:20 → JD.MS 05-02 00:31
PROVIDERS: ADMIT Internal Medicine; ATTEND Internal Medicine
DX: I50.33 Acute on chronic diastolic (congestive) heart failure (principal); I25.10 Atherosclerotic heart disease of native coronary artery without angina pectoris; E78.00 Pure hypercholesterolemia, unspecified; H54.7 Unspecified visual loss; H91.90 Unspecified hearing loss, unspecified ear; R74.8 Abnormal levels of other serum enzymes; E78.5 Hyperlipidemia, unspecified; R42 Dizziness and giddiness; I95.9 Hypotension, unspecified; R05 Cough; I25.2 Old myocardial infarction; M72.9 Fibroblastic disorder, unspecified; M25.552 Pain in left hip; Z88.1 Allergy status to other antibiotic agents; R53.1 Weakness; R53.83 Other fatigue; M54.9 Dorsalgia, unspecified; M54.2 Cervicalgia; R06.01 Orthopnea; R06.00 Dyspnea, unspecified; R06.02 Shortness of breath; R60.0 Localized edema; R53.81 Other malaise; R63.0 Anorexia; Z79.82 Long term (current) use of aspirin; Z79.899 Other long term (current) drug therapy; Z95.5 Presence of coronary angioplasty implant and graft; Z86.010 Personal history of colon polyps
CPT/HCPCS: 36415; 71045; 80053; 83735; 83880; 84484; 85007; 85027; 85610; 85652; 86140; 93005; 99285; J1940; 71046; 71046-26; 80048; 80061; 81001; 82553; 85025; 93010; 93306; 94640; 96372; 97110-GP; 97161-GP; 97165-GO; A9270-GY; J1650; J7050; J7620-GY